=== PATIENT | male | born 1965 | race Caucasian/White ===

== ENCOUNTER 2016-09-28 22:09 | Inpatient (IN) | payer OTHER ==
[~2016-09-28] VITALS: Ht 180.3 cm; Wt 71.2 kg
[~2016-09-28 22:09] MED LIST: ACAMPROSATE CA333 MG PO; ADVIL200 MG PO; AMITRIPTYLINE H25 MG PO; AMITRIPTYLINE H50 MG PO; AMOXICILLIN500 MG PO; ARTIFICIAL TEAR1510 BOTH EYES; ATIVAN0.5 MG PO; B-1100 MG PO; BENADRYL25 MG PO; BENTYL20 MG PO; BUSPAR10 MG PO; BUTALB-APAP-CA1 EACH PO; Bentyl PO; CALAN SR,COVER240 MG PO; CARAFATE100 MG/ML PO; CARBAMAZEPINE100 MG PO; CENTRUM SILVER1 EAC3 PO; CHLORDIAZEPOXID25 MG PO; CITALOPRAM HBR20 MG PO; CLEAR EYES ITCH15 ML BOTH EYES; Cipro PO; DAILY VALUE1 EACH PO; DAILY VITE1 EAC1 PO; DECADRON1 MG PO; DOXEPIN HCL50 MG PO; ELIQUIS5 MG PO; ENDOCET 5-3251 EACH PO; FENUGREEK500 MG PO; FIORICET,ESG1 TABLET PO; FLAGYL500 MG PO; FLEXERIL10 MG PO; FLEXERIL5 MG PO; FLORASTOR250 MG PO; FLUCONAZOLE100 MG PO; FOLIC ACID1 MG PO; FOLVITE1 M1 PO; Flagyl PO; Flomax PO; GUMMI BEAR MUL1 EACH PO; HEARTBURN RELI150 M1 PO; IMODIUM2 MG PO; KADIAN10 MG PO; LEVAQUIN750 MG PO; LIBRIUM10 MG PO; LIBRIUM25 MG PO; LOPRESSOR25 MG PO; Lactinex,Floranex PO; MEDROL DOSEPAK4 MG PO; METOCLOPRAMIDE H5 MG PO; METRONIDAZOLE500 MG PO; MOTRIN IB200 MG PO; MOTRIN400 MG PO; MYCOSTATIN 100,60 ML PO; NAPROSYN500 MG PO; NEXIUM40 MG PO/NG; NORCO 5/3251 TABLET PO; OMEPRAZOLE40 M1 PO; ONE DAILY FOR1 EAC2 PO; PANTOPRAZOLE SO40 MG PO; PEPCID20 MG PO; PERCOCET 5/31 TABLET PO; PRILOSEC20 MG PO; PRILOSEC40 MG PO; PROMETHAZINE HC25 M1 PO; PROPRANOLOL HCL80 MG PO; PROTONIX40 MG PO; Protonix PO; Reglan PO; SINEQUAN50 MG PO; SUCRALFATE1 GM/10 ML PO; SUMATRIPTAN SUC25 MG PO; THERAGRAN1 TABLET PO; THIAMINE HCL100 MG PO; THIAMINE,VITAM100 MG PO; TUMS500 MG PO; TYLENOL EXTRA500 MG PO; TYLENOL PM EX-1 EACH PO; TYLENOL REGULA325 MG PO; Thiamine,Vitamin B1 PO; Ultram PO; VANCOMYCIN HCL125 MG PO; VERAPAMIL HCL240 MG PO; VISINE A.C300 DROP/1 BOTH EYES; VITAMIN B-1100 MG PO; Vancocin Oral Soluti PO; WHEY PROTEIN P907 GM PO; WHEY PROTEIN PO; ZOFRAN ODT4 MG PO; ZOFRAN4 MG PO; Zantac PO
[2016-09-28 22:57] LABS: HEMATOCRIT 38.8 % (38.0-50.0); MCH 31.3 PG (29.0-34.0); MCHC 34.3 G/DL (30.0-36.0); MCV 91.3 FL (86-99); PLATELET COUNT 511 K/uL (156-360); RBC DIS.WIDTH-CV 15.3 % (11.8-14.6); RBC DIS.WIDTH-SD 49.9 % (39-53); RED BLOOD COUNT 4.25 M/uL (4.00-5.50); WHITE BLOOD COUNT 8.1 K/uL (4.1-10.2)
[2016-09-28 23:04] LABS: CHLORIDE 107 mEq/L (99-109); POTASSIUM 3.8 mEq/L (3.7-5.4); SODIUM 144 mEq/L (136-147)
[2016-09-28 23:06] LABS: GLUCOSE 100 mg/dL (70-99); INTER. NORMALIZED RATIO 1.1; PROTHROMBIN TIME 10.7 (9.2-11.2); PTT 37.6 (25-32)
[2016-09-28 23:07] LABS: ANION GAP 18 MEQ/L (2-14)
[2016-09-28 23:08] LABS: TOTAL BILIRUBIN 0.6 mg/dL (0.0-1.0)
[2016-09-28 23:09] LABS: ALKALINE PHOSPHATASE 126 IU/L (3-129)
[2016-09-28 23:10] LABS: GFR ESTIMATE (CALCULATED) > 59 mL/min/
[2016-09-28 23:11] LABS: UREA NITROGEN (BUN) 5 mg/dL (9-23)
[2016-09-28 23:13] LABS: LIPASE 37 U/L (1.0-51.0)
[2016-09-28 23:16] LABS: TROP-I INTERPRETATION NEGATIVE; TROPONIN-I < 0.01 ng/mL (0.0-0.30)
[2016-09-29] MEDS ORDERED: ADVIL,NUPRIN,M200 MG PO (00:56)
[2016-09-29 02:15] LABS: ADD MIUA? NO; BILIRUBIN NEGATIVE; BLOOD NEGATIVE; COLOR YELLOW ((YELLOW)); GLUCOSE (STRIP) NEGATIVE; KETONES NEGATIVE; LEUKOCYTES NEGATIVE; NITRITE NEGATIVE; PROTEIN (STRIP) NEGATIVE; SPECIFIC GRAVITY 1.029 (1.000-1.030); UCUL ADDED? NO; UROBILINOGEN 0.2 MG/DL (0.2-1.0)
[2016-09-29 02:57] LABS: MAGNESIUM 2.3 mg/dL (1.3-2.7)
[2016-09-29 06:00] VITALS: BP 148/96
[2016-09-29 08:15] VITALS: BP 145/88
[2016-09-29 11:43] VITALS: BP 137/73
[2016-09-29 16:45] VITALS: BP 141/82
[2016-09-29 20:00] VITALS: BP 139/88
[2016-09-30] VITALS: BP 147/88
[2016-09-30 04:00] VITALS: BP 145/91
[2016-09-30 07:19] LABS: HEMATOCRIT 33.7 % (38.0-50.0); MCH 30.8 PG (29.0-34.0); MCHC 33.5 G/DL (30.0-36.0); MCV 91.8 FL (86-99); RBC DIS.WIDTH-CV 15.4 % (11.8-14.6); RBC DIS.WIDTH-SD 51.7 % (39-53); RED BLOOD COUNT 3.67 M/uL (4.00-5.50); WHITE BLOOD COUNT 6.9 K/uL (4.1-10.2)
[2016-09-30 07:51] LABS: HEMATOLOGY COMMENT 1 REV
[2016-09-30 07:54] LABS: MEAN PLAT.VOLUME 9.4 uM^3 (9.0-12.4); PLATELET COUNT 288 K/uL (156-360)
[2016-09-30 08:11] LABS: ANION GAP 12 MEQ/L (2-14); CHLORIDE 103 MEQ/L (99-109); GFR ESTIMATE (CALCULATED) > 59 mL/min/; GLUCOSE 90 mg/dL (70-99); POTASSIUM 3.5 MEQ/L (3.7-5.4); SAMPLE HEMOLYSIS CHECK 0; SAMPLE ICTERIC CHECK 0; SAMPLE LIPEMIA CHECK 0; SODIUM 138 MEQ/L (136-147); UREA NITROGEN (BUN) 2 mg/dL (9-23)
[2016-09-30 08:26] VITALS: BP 146/87
[2016-09-30 12:18] VITALS: BP 142/86
[2016-09-30 14:22] LABS: INTER. NORMALIZED RATIO 1.1; PROTHROMBIN TIME 11.3 (9.2-11.2)
[2016-09-30 16:27] VITALS: BP 129/83
[2016-09-30 20:00] VITALS: BP 135/81
[2016-10-01] VITALS (7 sets, daily range): BP systolic 122–152; BP diastolic 78–96
[2016-10-01 09:58] LABS: INTER. NORMALIZED RATIO 1.1; PROTHROMBIN TIME 11.1 (9.2-11.2)
[2016-10-02 04:14] VITALS: BP 121/80
[2016-10-02 08:04] VITALS: BP 124/88
[2016-10-02 10:04] LABS: MCHC 33.2 G/DL (30.0-36.0); MCV 93.6 FL (86-99); MEAN PLAT.VOLUME 9.7 uM^3 (9.0-12.4); PLATELET COUNT 235 K/uL (156-360); RBC DIS.WIDTH-CV 15.8 % (11.8-14.6); RBC DIS.WIDTH-SD 53.4 % (39-53); RED BLOOD COUNT 4.06 M/uL (4.00-5.50)
[2016-10-02 10:28] LABS: PROTHROMBIN TIME 10.6 (9.2-11.2)
[2016-10-02 10:29] LABS: ANION GAP 9 MEQ/L (2-14); CHLORIDE 103 MEQ/L (99-109); GFR ESTIMATE (CALCULATED) > 59 mL/min/; GLUCOSE 148 mg/dL (70-99); POTASSIUM 3.6 MEQ/L (3.7-5.4); SAMPLE HEMOLYSIS CHECK 0; SAMPLE ICTERIC CHECK 0; SAMPLE LIPEMIA CHECK 0; SODIUM 139 MEQ/L (136-147); UREA NITROGEN (BUN) 3 mg/dL (9-23)
[2016-10-02 11:46] VITALS: BP 141/81
[2016-10-02 15:27] VITALS: BP 138/83
[2016-10-02 19:33] VITALS: BP 120/85
[2016-10-02 23:50] VITALS: BP 120/81
[2016-10-03 04:00] VITALS: BP 121/84
[2016-10-03 06:33] LABS: INTER. NORMALIZED RATIO 1.1; PROTHROMBIN TIME 11.4 (9.2-11.2); PTT 65.8 (25-32)
[2016-10-03 08:38] VITALS: BP 124/81
[2016-10-03 12:10] VITALS: BP 132/76
[2016-10-03 16:50] VITALS: BP 113/71
[2016-10-03 20:32] VITALS: BP 126/69
[2016-10-03 23:49] VITALS: BP 128/78
[2016-10-04 05:06] VITALS: BP 139/82
[2016-10-04 06:17] LABS: INTER. NORMALIZED RATIO 1.4; PROTHROMBIN TIME 14.6 (9.2-11.2)
[2016-10-04 07:45] VITALS: BP 133/85
[2016-10-04 14:41] VITALS: BP 125/76
[2016-10-04 16:54] LABS: HEMATOCRIT 36.5 % (38.0-50.0); MCH 30.7 PG (29.0-34.0); MCHC 32.6 G/DL (30.0-36.0); MCV 94.3 FL (86-99); MEAN PLAT.VOLUME 9.7 uM^3 (9.0-12.4); PLATELET COUNT 193 K/uL (156-360); RBC DIS.WIDTH-CV 16.5 % (11.8-14.6); RED BLOOD COUNT 3.87 M/uL (4.00-5.50); WHITE BLOOD COUNT 4.7 K/uL (4.1-10.2)
[2016-10-04 17:19] LABS: EOSINOPHIL (%) 1.5 % (0-5); EOSINOPHIL COUNT 0.1 K/uL (0-0.3); IMMATURE GRANULOCYTE (%) 0.2 % (0.0-0.7); MONOCYTE (%) 7.8 % (3-12); MONOCYTE COUNT 0.4 K/uL (0-0.8); NEUTROPHIL (%) 68.8 % (45-76); NEUTROPHIL COUNT 3.3 K/uL (1.8-6.4)
[2016-10-04 17:22] VITALS: BP 127/83
[2016-10-04 20:05] VITALS: BP 118/71
[2016-10-04 23:46] VITALS: BP 120/72
[2016-10-05 06:37] LABS: HEMATOCRIT 36.2 % (38.0-50.0); MCH 30.6 PG (29.0-34.0); MCHC 32.6 G/DL (30.0-36.0); MCV 93.8 FL (86-99); MEAN PLAT.VOLUME 9.8 uM^3 (9.0-12.4); PLATELET COUNT 204 K/uL (156-360); RBC DIS.WIDTH-CV 16.2 % (11.8-14.6); RBC DIS.WIDTH-SD 55.8 % (39-53); RED BLOOD COUNT 3.86 M/uL (4.00-5.50); WHITE BLOOD COUNT 4.7 K/uL (4.1-10.2)
[2016-10-05 06:46] LABS: INTER. NORMALIZED RATIO 2.2
[2016-10-05 06:53] LABS: EOSINOPHIL (%) 2.2 % (0-5); EOSINOPHIL COUNT 0.1 K/uL (0-0.3); IMMATURE GRANULOCYTE (%) 0.4 % (0.0-0.7); MONOCYTE (%) 9.5 % (3-12); MONOCYTE COUNT 0.4 K/uL (0-0.8); NEUTROPHIL (%) 66.6 % (45-76); NEUTROPHIL COUNT 3.1 K/uL (1.8-6.4)
[2016-10-05 07:19] LABS: ANION GAP 8 MEQ/L (2-14); CHLORIDE 103 MEQ/L (99-109); GFR ESTIMATE (CALCULATED) > 59 mL/min/; POTASSIUM 4.2 MEQ/L (3.7-5.4); SAMPLE HEMOLYSIS CHECK 0; SAMPLE ICTERIC CHECK 0; SAMPLE LIPEMIA CHECK 0; SODIUM 137 MEQ/L (136-147); UREA NITROGEN (BUN) 5 mg/dL (9-23)
[2016-10-05 07:22] LABS: GLUCOSE 96 mg/dL (70-99)
[2016-10-05 08:02] VITALS: BP 125/75
[2016-10-05 12:00] VITALS: BP 112/67
[2016-10-05] MEDS ORDERED: COUMADIN3 MG PO (14:57)
[2016-10-05] MEDS ORDERED: PERCOCET 10/1 TABLET PO (15:09)
[2016-10-05 15:23] VITALS: BP 118/70
== END 2016-10-05 19:04 | disposition home or self-care (01) | DRG 314 ==
LOC: EME → EDBD 22:09 → EME 22:09 → EDOF 09-29 01:41 → 5SOUTH 09-29 01:41
PROVIDERS: Emergency Medicine; Hospitalist; Internal Medicine; Nurse Practitioner Adult Health; Nurse Practitioner Family
DX: T82.868A Thrombosis due to vascular prosthetic devices, implants and grafts, initial encounter (principal); I82.220 Acute embolism and thrombosis of inferior vena cava; I82.423 Acute embolism and thrombosis of iliac vein, bilateral; K52.9 Noninfective gastroenteritis and colitis, unspecified; E86.0 Dehydration; T82.7XXA Infection and inflammatory reaction due to other cardiac and vascular devices, implants and grafts, initial encounter; R78.81 Bacteremia; B95.5 Unspecified streptococcus as the cause of diseases classified elsewhere; I25.10 Atherosclerotic heart disease of native coronary artery without angina pectoris; F32.9 Major depressive disorder, single episode, unspecified; G43.519 Persistent migraine aura without cerebral infarction, intractable, without status migrainosus; K21.9 Gastro-esophageal reflux disease without esophagitis; F10.20 Alcohol dependence, uncomplicated; F17.210 Nicotine dependence, cigarettes, uncomplicated; Z95.5 Presence of coronary angioplasty implant and graft; Z85.820 Personal history of malignant melanoma of skin; Z86.711 Personal history of pulmonary embolism; Z86.718 Personal history of other venous thrombosis and embolism; Z79.01 Long term (current) use of anticoagulants; Z91.128 Patient's intentional underdosing of medication regimen for other reason; I25.2 Old myocardial infarction
CPT/HCPCS: 70450; 74177; 76937; 80048; 80053; 81003; 83605; 83690; 83735; 84484; 85025; 85027; 85610; 85730; 87040; 87077; 87493; 87801; 93005; 99281; 99285; C1894; C9113; J0744; J1200; J1650; J2060; J2270; J2405; J2540; J2765; J3411; J7030; J7050; S0028; S0030

== ENCOUNTER 2016-10-14 08:39 | Observation (INO) | payer OTHER ==
[~2016-10-14] VITALS: Ht 180.3 cm; Wt 70.0 kg
[~2016-10-14 08:39] MED LIST changes: +ADVIL,NUPRIN,M200 MG PO; +COUMADIN3 MG PO; +PERCOCET 10/1 TABLET PO
[2016-10-14 08:47] VITALS: BP 142/74
[2016-10-14 10:00] VITALS: BP 135/82
[2016-10-14 11:27] LABS: HEMATOCRIT 33.9 % (38.0-50.0); MCH 30.9 PG (29.0-34.0); MCHC 34.2 G/DL (30.0-36.0); MCV 90.4 FL (86-99); RBC DIS.WIDTH-CV 16.3 % (11.8-14.6); RBC DIS.WIDTH-SD 52.4 % (39-53); RED BLOOD COUNT 3.75 M/uL (4.00-5.50); WHITE BLOOD COUNT 4.9 K/uL (4.1-10.2)
[2016-10-14 11:30] LABS: EOSINOPHIL (%) 0 % (0-5); IMMATURE GRANULOCYTE (%) 0.2 % (0.0-0.7); IMMATURE GRANULOCYTE COUNT 0.1 K/uL; LYMPHOCYTE COUNT 0.7 K/uL (1.0-2.8); MONOCYTE (%) 3.3 % (3-12); MONOCYTE COUNT 0.2 K/uL (0-0.8); NEUTROPHIL (%) 82.5 % (45-76); PLATELET COUNT 403 K/uL (156-360)
[2016-10-14 11:36] LABS: CHLORIDE 103 mEq/L (99-109); POTASSIUM 3.8 mEq/L (3.7-5.4); SODIUM 138 mEq/L (136-147)
[2016-10-14 11:37] LABS: INTER. NORMALIZED RATIO 2.1; PROTHROMBIN TIME 21.4 (9.2-11.2)
[2016-10-14 11:38] LABS: GLUCOSE 99 mg/dL (70-99)
[2016-10-14 11:40] LABS: ANION GAP 14 MEQ/L (2-14); TOTAL BILIRUBIN 0.5 mg/dL (0.0-1.0)
[2016-10-14 11:42] LABS: ALKALINE PHOSPHATASE 65 IU/L (3-129); GFR ESTIMATE (CALCULATED) > 59 mL/min/
[2016-10-14 11:43] LABS: UREA NITROGEN (BUN) 7 mg/dL (9-23)
[2016-10-14 11:45] LABS: LIPASE 13 U/L (1.0-51.0)
[2016-10-14 11:48] LABS: TROP-I INTERPRETATION NEGATIVE; TROPONIN-I < 0.01 ng/mL (0.0-0.30)
[2016-10-14] MEDS ORDERED: CITALOPRAM HBR20 MG PO (12:35)
[2016-10-14] MEDS ORDERED: WARFARIN SODIUM3 MG PO (12:36)
[2016-10-14] MEDS ORDERED: [UNRECOGNIZED DRUG - CODE] IV (12:40)
[2016-10-14 16:58] LABS: HEMATOCRIT 32.5 % (38.0-50.0); MCV 90.3 FL (86-99)
[2016-10-14 18:02] VITALS: BP 138/82
[2016-10-15] VITALS: BP 134/75
[2016-10-15 01:23] LABS: MCV 90.7 FL (86-99)
[2016-10-15 07:12] LABS: HEMATOCRIT 36.7 % (38.0-50.0); MCV 90.8 FL (86-99)
[2016-10-15 07:26] LABS: INTER. NORMALIZED RATIO 1.7; PROTHROMBIN TIME 17.1 (9.2-11.2)
[2016-10-15 07:38] VITALS: BP 133/72
[2016-10-15 16:07] LABS: HEMATOCRIT 36.4 % (38.0-50.0)
[2016-10-15 16:31] VITALS: BP 127/74
[2016-10-16 00:11] VITALS: BP 121/70
[2016-10-16 00:44] LABS: HEMATOCRIT 38.6 % (38.0-50.0); MCV 90.4 FL (86-99)
[2016-10-16 07:01] VITALS: BP 115/66
[2016-10-16 07:10] LABS: INTER. NORMALIZED RATIO 1.3; PROTHROMBIN TIME 13.7 (9.2-11.2)
[2016-10-16 07:27] LABS: MCV 92.2 FL (86-99)
[2016-10-16] MEDS ORDERED: FOLIC ACID1 MG PO (10:28)
[2016-10-16] MEDS ORDERED: Thiamine,Vitamin B1 PO (10:28)
[2016-10-16] MEDS ORDERED: THERAGRAN1 TABLET PO (10:28)
[2016-10-16] MEDS ORDERED: LOVENOX80 MG/0.8 SC (11:10)
[2016-10-16 11:47] VITALS: BP 117/81
== END 2016-10-16 14:32 | disposition home or self-care (01) ==
LOC: EME → EDBD 08:39 → EME 08:39 → 5SOUTH 12:28 → EDOF 12:28 → 5SOUTH 12:28
PROVIDERS: Emergency Medicine; Hospitalist
DX: K92.2 Gastrointestinal hemorrhage, unspecified (principal); F10.20 Alcohol dependence, uncomplicated; I82.221 Chronic embolism and thrombosis of inferior vena cava; Z86.718 Personal history of other venous thrombosis and embolism; Z95.828 Presence of other vascular implants and grafts; Z79.01 Long term (current) use of anticoagulants; R78.81 Bacteremia; K20.9 Esophagitis, unspecified; Z85.820 Personal history of malignant melanoma of skin; R51 Headache; Z82.3 Family history of stroke; Z72.0 Tobacco use; Z88.5 Allergy status to narcotic agent; Z88.6 Allergy status to analgesic agent; Z88.8 Allergy status to other drugs, medicaments and biological substances
CPT/HCPCS: 36415; 71010; 80053; 83605; 83690; 83735; 84484; 85014; 85018; 85025; 85610; 86850; 86900; 86901; 87040; 93005; 99281; 99285; C9113; G0378; J1650; J2060; J2270; J2405; J2540; J2765; J3411; J7030; J7050

== ENCOUNTER 2016-10-29 12:27 | Emergency (ER) | payer OTHER ==
[~2016-10-29] VITALS: Ht 180.3 cm; Wt 64.7 kg
[~2016-10-29 12:27] MED LIST changes: +LOVENOX80 MG/0.8 SC; +WARFARIN SODIUM3 MG PO; +[UNRECOGNIZED DRUG - CODE] IV
[2016-10-29 13:53] LABS: BASOPHIL COUNT 0.1 K/uL (0-0.1); EOSINOPHIL (%) 0.3 % (0-5); HEMATOCRIT 42.5 % (38.0-50.0); IMMATURE GRANULOCYTE (%) 0.1 % (0.0-0.7); IMMATURE GRANULOCYTE COUNT 0.1 K/uL; LYMPHOCYTE COUNT 1.3 K/uL (1.0-2.8); MCHC 34.6 G/DL (30.0-36.0); MCV 86.7 FL (86-99); MEAN PLAT.VOLUME 9.2 uM^3 (9.0-12.4); MONOCYTE (%) 2.7 % (3-12); MONOCYTE COUNT 0.3 K/uL (0-0.8); NEUTROPHIL (%) 82.3 % (45-76); NEUTROPHIL COUNT 7.7 K/uL (1.8-6.4); RBC DIS.WIDTH-CV 16.4 % (11.8-14.6); RBC DIS.WIDTH-SD 52.3 % (39-53); WHITE BLOOD COUNT 9.4 K/uL (4.1-10.2)
[2016-10-29 13:54] LABS: PLATELET COUNT 266 K/uL (156-360)
[2016-10-29 13:56] LABS: CHLORIDE 105 mEq/L (99-109); POTASSIUM 4.4 mEq/L (3.7-5.4); SODIUM 143 mEq/L (136-147)
[2016-10-29 13:58] LABS: GLUCOSE 87 mg/dL (70-99)
[2016-10-29 13:59] LABS: ANION GAP 23 MEQ/L (2-14)
[2016-10-29 14:00] LABS: TOTAL BILIRUBIN 0.8 mg/dL (0.0-1.0)
[2016-10-29 14:01] LABS: SERUM ETHYL ALCOHOL 309 mg/dL
[2016-10-29 14:02] LABS: ALKALINE PHOSPHATASE 80 IU/L (3-129); GFR ESTIMATE (CALCULATED) > 59 mL/min/
[2016-10-29 14:06] LABS: D-DIMER ELISA > 4.00 mg/L FEU (< 0.57)
[2016-10-29 14:07] LABS: TROP-I INTERPRETATION NEGATIVE; TROPONIN-I < 0.01 ng/mL (0.0-0.30)
[2016-10-29 14:10] LABS: CK-MB 0.5 ng/mL (0.0-4.9)
[2016-10-29 14:24] LABS: UREA NITROGEN (BUN) 11 mg/dL (9-23)
[2016-10-29 14:26] LABS: CREATINE KINASE 59 IU/L (1-294); TOTAL CK 59 IU/L (1-294)
[2016-10-29 17:23] LABS: INTER. NORMALIZED RATIO 1.2; PROTHROMBIN TIME 11.9 (9.2-11.2)
[2016-10-29 23:31] LABS: TROP-I INTERPRETATION NEGATIVE; TROPONIN-I < 0.01 ng/mL (0.0-0.30)
[2016-10-29] MEDS ORDERED: ATIVAN1 MG PO (23:47)
[2016-10-29] MEDS ORDERED: DESYREL100 MG PO (23:47)
[2016-10-30 00:12] VITALS: BP 143/92
== END 2016-10-30 00:16 | disposition home or self-care (01) ==
LOC: EME 12:27
PROVIDERS: Emergency Medicine
DX: R07.9 Chest pain, unspecified (principal); R10.9 Unspecified abdominal pain; F10.239 Alcohol dependence with withdrawal, unspecified; I10 Essential (primary) hypertension; I25.2 Old myocardial infarction; Z98.61 Coronary angioplasty status; Z79.01 Long term (current) use of anticoagulants; F17.200 Nicotine dependence, unspecified, uncomplicated
CPT/HCPCS: 71010; 74176; 78582; 80053; 82550; 82553; 84484; 85025; 85379; 85610; 93005; 99281; 99285; A9540; A9567; C9113; G0480; J2060; J2270; J2405; J2765; J7030

== ENCOUNTER 2016-11-23 16:53 | Inpatient (IN) | payer OTHER ==
[~2016-11-23] VITALS: Ht 180.3 cm; Wt 72.2 kg
[~2016-11-23 16:53] MED LIST changes: +ATIVAN1 MG PO; +DESYREL100 MG PO
[2016-11-23 17:47] LABS: HEMATOCRIT 43.6 % (38.0-50.0); MCH 29.9 PG (29.0-34.0); MCHC 34.4 G/DL (30.0-36.0); MCV 86.9 FL (86-99); MEAN PLAT.VOLUME 9.1 uM^3 (9.0-12.4); PLATELET COUNT 258 K/uL (156-360); RBC DIS.WIDTH-CV 17.9 % (11.8-14.6); RBC DIS.WIDTH-SD 56.8 % (39-53); RED BLOOD COUNT 5.02 M/uL (4.00-5.50); WHITE BLOOD COUNT 3.1 K/uL (4.1-10.2)
[2016-11-23 17:58] LABS: CHLORIDE 103 mEq/L (99-109); POTASSIUM 4.1 mEq/L (3.7-5.4); SODIUM 146 mEq/L (136-147)
[2016-11-23 18:00] LABS: GLUCOSE 102 mg/dL (70-99)
[2016-11-23 18:01] LABS: ANION GAP 18 MEQ/L (2-14)
[2016-11-23 18:03] LABS: GFR ESTIMATE (CALCULATED) > 59 mL/min/; SERUM ETHYL ALCOHOL 318 mg/dL
[2016-11-23 18:04] LABS: UREA NITROGEN (BUN) 9 mg/dL (9-23)
[2016-11-23 18:07] LABS: TROP-I INTERPRETATION NEGATIVE; TROPONIN-I < 0.01 ng/mL (0.0-0.30)
[2016-11-23 23:23] LABS: AMPHETAMINE NEGATIVE (500 ng/mL); BARBITURATES NEGATIVE (200 ng/mL); BENZODIAZEPINES NEGATIVE (150 ng/mL); COCAINE NEGATIVE (150 ng/mL); INTERNAL CONTROLS VALID? YES; METHADONE NEGATIVE (200 ng/mL); METHAMPHETAMINE NEGATIVE (500 ng/mL); OPIATES (MORPHINE) NEGATIVE (100 ng/mL); OXYCODONE NEGATIVE (100 ng/mL); PHENCYCLIDINE NEGATIVE (25 ng/mL); PROPOXYPHENE NEGATIVE (300 ng/mL); THC CANNABINOIDS NEGATIVE (50 ng/mL); TRICYCLIC ANTIDEPRESSANTS NEGATIVE (300 ng/mL)
[2016-11-24] MEDS ORDERED: COUMADIN1 MG PO (13:07)
[2016-11-24] MEDS ORDERED: PROTONIX40 MG PO (13:10)
[2016-11-24 18:52] VITALS: BP 168/106
[2016-11-24 19:00] VITALS: BP 168/106
[2016-11-24 21:44] LABS: INTER. NORMALIZED RATIO 1.1
[2016-11-25 09:07] LABS: INTER. NORMALIZED RATIO 1.1; PROTHROMBIN TIME 10.8 (9.2-11.2)
[2016-11-25 09:29] VITALS: BP 132/87
[2016-11-25 15:16] VITALS: BP 127/83
[2016-11-26 07:39] VITALS: BP 117/73
[2016-11-26 09:42] LABS: INTER. NORMALIZED RATIO 1.1; PROTHROMBIN TIME 10.8 (9.2-11.2)
[2016-11-26 15:30] VITALS: BP 103/60
[2016-11-27 08:12] VITALS: BP 112/79
[2016-11-27 08:18] LABS: INTER. NORMALIZED RATIO 1.1; PROTHROMBIN TIME 10.7 (9.2-11.2)
[2016-11-27 15:07] VITALS: BP 142/79
[2016-11-27 19:00] VITALS: BP 134/70
[2016-11-28 07:16] LABS: INTER. NORMALIZED RATIO 1.1; PROTHROMBIN TIME 11.4 (9.2-11.2)
[2016-11-28 07:42] VITALS: BP 132/90
[2016-11-28 15:48] VITALS: BP 128/71
[2016-11-29 07:36] LABS: INTER. NORMALIZED RATIO 1.2; PROTHROMBIN TIME 12.4 (9.2-11.2)
[2016-11-29 08:08] VITALS: BP 146/77
[2016-11-29 15:10] VITALS: BP 109/67
[2016-11-30 07:45] VITALS: BP 137/81
[2016-11-30 09:15] LABS: INTER. NORMALIZED RATIO 1.4; PROTHROMBIN TIME 14.2 (9.2-11.2)
[2016-11-30 15:18] VITALS: BP 114/64
[2016-12-01 07:58] VITALS: BP 120/71
[2016-12-01 08:01] LABS: INTER. NORMALIZED RATIO 1.5; PROTHROMBIN TIME 15.4 (9.2-11.2)
[2016-12-01 08:34] LABS: HEMATOCRIT 36.2 % (38.0-50.0); MCH 30.2 PG (29.0-34.0); MCHC 33.7 G/DL (30.0-36.0); MCV 89.6 FL (86-99); PLATELET COUNT 213 K/uL (156-360); RBC DIS.WIDTH-CV 18.3 % (11.8-14.6); RBC DIS.WIDTH-SD 59.9 % (39-53); RED BLOOD COUNT 4.04 M/uL (4.00-5.50)
[2016-12-01 08:35] LABS: WHITE BLOOD COUNT 4.2 K/uL (4.1-10.2)
[2016-12-01 15:55] VITALS: BP 116/73
[2016-12-02 07:13] LABS: INTER. NORMALIZED RATIO 1.6; PROTHROMBIN TIME 16.2 (9.2-11.2)
[2016-12-02 08:00] VITALS: BP 123/78
[2016-12-02 15:58] VITALS: BP 112/57
[2016-12-03 07:55] VITALS: BP 117/68
[2016-12-03] MEDS ORDERED: CITALOPRAM HBR20 MG PO (09:16)
[2016-12-03] MEDS ORDERED: BUPROPION XL300 MG PO (09:16)
[2016-12-03 10:39] LABS: INTER. NORMALIZED RATIO 1.9
== END 2016-12-03 12:52 | disposition home or self-care (01) | DRG 885 ==
LOC: EME 16:53 → 1WEST 11-24 12:29 → EDOF 11-24 12:29 → 1WEST 11-24 12:29
PROVIDERS: Psychiatry & Neurology Psychiatry
DX: F33.2 Major depressive disorder, recurrent severe without psychotic features (principal); R45.851 Suicidal ideations; F10.229 Alcohol dependence with intoxication, unspecified; Y90.8 Blood alcohol level of 240 mg/100 ml or more; G47.9 Sleep disorder, unspecified; F41.9 Anxiety disorder, unspecified; I25.10 Atherosclerotic heart disease of native coronary artery without angina pectoris; K21.9 Gastro-esophageal reflux disease without esophagitis; R79.1 Abnormal coagulation profile; G43.909 Migraine, unspecified, not intractable, without status migrainosus; I25.2 Old myocardial infarction; Z98.61 Coronary angioplasty status; Z56.0 Unemployment, unspecified; Z87.891 Personal history of nicotine dependence; Z88.6 Allergy status to analgesic agent; Z81.8 Family history of other mental and behavioral disorders; Z79.01 Long term (current) use of anticoagulants; T45.515A Adverse effect of anticoagulants, initial encounter
CPT/HCPCS: 71020; 80048; 84484; 85027; 85610; 90839; 93005; 97150 GO; 97166 GO; 99281; 99285; G0480; J1650; Q0177

== ENCOUNTER 2017-05-03 20:48 | Inpatient (IN) | payer OTHER ==
[~2017-05-03] VITALS: Ht 180.3 cm; Wt 74.9 kg
[~2017-05-03 20:48] MED LIST changes: +BUPROPION XL300 MG PO; +COUMADIN1 MG PO
[2017-05-03 21:34] LABS: HEMATOCRIT 40.4 % (38.0-50.0); MCHC 34.7 G/DL (30.0-36.0); MEAN PLAT.VOLUME 9.8 uM^3 (9.0-12.4); PLATELET COUNT 207 K/uL (156-360); RBC DIS.WIDTH-CV 13.4 % (11.8-14.6); RBC DIS.WIDTH-SD 37.6 % (39-53); RED BLOOD COUNT 5.18 M/uL (4.00-5.50); WHITE BLOOD COUNT 5.1 K/uL (4.1-10.2)
[2017-05-03 21:44] LABS: CHLORIDE 94 mEq/L (99-109); POTASSIUM 3.3 mEq/L (3.7-5.4); SODIUM 139 mEq/L (136-147)
[2017-05-03 21:46] LABS: GLUCOSE 147 mg/dL (70-99)
[2017-05-03 21:47] LABS: ANION GAP 22 MEQ/L (2-14)
[2017-05-03 21:49] LABS: ALKALINE PHOSPHATASE 99 IU/L (3-129); SERUM ETHYL ALCOHOL 243 mg/dL
[2017-05-03 21:50] LABS: GFR ESTIMATE (CALCULATED) > 59 mL/min/
[2017-05-03 21:51] LABS: UREA NITROGEN (BUN) 12 mg/dL (9-23)
[2017-05-03 21:53] LABS: LIPASE 89 U/L (1.0-51.0)
[2017-05-03 21:56] LABS: TROP-I INTERPRETATION NEGATIVE; TROPONIN-I < 0.01 ng/mL (0.0-0.30)
[2017-05-04 03:42] LABS: ADD MIUA? NO; BILIRUBIN NEGATIVE; BLOOD NEGATIVE; COLOR YELLOW ((YELLOW)); GLUCOSE (STRIP) 50; KETONES 5; LEUKOCYTES NEGATIVE; NITRITE NEGATIVE; PROTEIN (STRIP) 30; SPECIFIC GRAVITY 1.016 (1.000-1.030); UCUL ADDED? NO; UROBILINOGEN 0.2 MG/DL (0.2-1.0)
[2017-05-04 03:50] LABS: AMPHETAMINE NEGATIVE (500 ng/mL); BARBITURATES NEGATIVE (200 ng/mL); BENZODIAZEPINES PRESUMPTIVE POSITIVE (150 ng/mL); COCAINE NEGATIVE (150 ng/mL); INTERNAL CONTROLS VALID? YES; METHADONE NEGATIVE (200 ng/mL); METHAMPHETAMINE NEGATIVE (500 ng/mL); OPIATES (MORPHINE) NEGATIVE (100 ng/mL); OXYCODONE NEGATIVE (100 ng/mL); PHENCYCLIDINE NEGATIVE (25 ng/mL); PROPOXYPHENE NEGATIVE (300 ng/mL); THC CANNABINOIDS NEGATIVE (50 ng/mL); TRICYCLIC ANTIDEPRESSANTS NEGATIVE (300 ng/mL)
[2017-05-04 03:51] LABS: ADD MEDTOX COMMENT Y
[2017-05-04 04:16] LABS: TROP-I INTERPRETATION NEGATIVE; TROPONIN-I < 0.01 ng/mL (0.0-0.30)
[2017-05-04 04:39] LABS: BENZODIAZEPINES QUANT VALUE 0 NG/ML; BENZODIAZEPINES, URINE SCREEN Negative (200 ng/mL)
[2017-05-04] MEDS ORDERED: ELIQUIS5 MG PD (06:26)
[2017-05-04 07:43] VITALS: BP 134/68
[2017-05-04 09:50] VITALS: BP 132/69
[2017-05-04 11:43] VITALS: BP 119/73
[2017-05-04 15:24] VITALS: BP 127/76
[2017-05-05 07:50] VITALS: BP 129/87
[2017-05-05 15:50] VITALS: BP 125/80
[2017-05-06 07:38] VITALS: BP 139/91
[2017-05-06] MEDS ORDERED: PROTONIX40 MG PO (10:50)
[2017-05-06] MEDS ORDERED: BUPROPION XL150 MG PO (10:50)
[2017-05-06] MEDS ORDERED: ELIQUIS5 MG PD ×2 (10:50→11:04)
[2017-05-06] MEDS ORDERED: ELIQUIS5 MG PO (11:08)
[2017-05-06 15:39] VITALS: BP 137/74
[2017-05-07 07:42] VITALS: BP 115/74
[2017-05-07 15:34] VITALS: BP 125/70
[2017-05-08 07:45] VITALS: BP 126/80
[2017-05-08 16:01] VITALS: BP 138/85
[2017-05-09 07:42] VITALS: BP 145/82
[2017-05-09] MEDS ORDERED: ONDANSETRON ODT4 MG PO (09:11)
== END 2017-05-09 10:16 | disposition home or self-care (01) | DRG 897 ==
LOC: EME → EDBD 20:48 → EME 20:48 → 1WEST 05-04 05:29 → EDOF 05-04 05:29 → 1WEST 05-04 05:45 → EDOF 05-04 05:45 → ENRESERV 05-04 05:45 → 1WEST 05-04 06:15
PROVIDERS: Emergency Medicine
DX: F10.239 Alcohol dependence with withdrawal, unspecified (principal); F10.229 Alcohol dependence with intoxication, unspecified; F33.1 Major depressive disorder, recurrent, moderate; R45.851 Suicidal ideations; Y90.8 Blood alcohol level of 240 mg/100 ml or more; E87.6 Hypokalemia; K21.9 Gastro-esophageal reflux disease without esophagitis; F17.200 Nicotine dependence, unspecified, uncomplicated; I25.2 Old myocardial infarction; Z59.0 Homelessness; Z76.5 Malingerer [conscious simulation]; Z85.820 Personal history of malignant melanoma of skin; Z95.5 Presence of coronary angioplasty implant and graft; Z86.73 Personal history of transient ischemic attack (TIA), and cerebral infarction without residual deficits; Z79.01 Long term (current) use of anticoagulants
CPT/HCPCS: 71020; 80053; 81003; 83690; 84484; 84999; 85027; 90839; 93005; 97150 GO; 97165 GO; 99281; 99285; G0480; J2060; J2405; J2765; J3411; J3475; J7030

== ENCOUNTER 2017-05-22 00:45 | Inpatient (IN) | payer OTHER ==
[~2017-05-22] VITALS: Ht 180.3 cm; Wt 71.2 kg
[~2017-05-22 00:45] MED LIST changes: +BUPROPION XL150 MG PO; +ELIQUIS5 MG PD; +ONDANSETRON ODT4 MG PO
[2017-05-22 01:41] LABS: HEMATOCRIT 38.1 % (38.0-50.0); MCH 27.6 PG (29.0-34.0); MCHC 34.4 G/DL (30.0-36.0); MCV 80.2 FL (86-99); MEAN PLAT.VOLUME 9.2 uM^3 (9.0-12.4); PLATELET COUNT 217 K/uL (156-360); RBC DIS.WIDTH-CV 17.2 % (11.8-14.6); RBC DIS.WIDTH-SD 48.6 % (39-53); RED BLOOD COUNT 4.75 M/uL (4.00-5.50); WHITE BLOOD COUNT 10.6 K/uL (4.1-10.2)
[2017-05-22 01:47] LABS: INTER. NORMALIZED RATIO 1.2; PROTHROMBIN TIME 13.4 SEC (10.2-12.9)
[2017-05-22 01:50] LABS: CHLORIDE 95 mEq/L (99-109); POTASSIUM 3.6 mEq/L (3.7-5.4); SODIUM 138 mEq/L (136-147)
[2017-05-22 01:52] LABS: GLUCOSE 95 mg/dL (70-99)
[2017-05-22 01:53] LABS: ANION GAP 20 MEQ/L (2-14)
[2017-05-22 01:56] LABS: GFR ESTIMATE (CALCULATED) > 59 mL/min/
[2017-05-22 01:57] LABS: UREA NITROGEN (BUN) 10 mg/dL (9-23)
[2017-05-22 10:02] VITALS: BP 127/78
[2017-05-22 15:16] VITALS: BP 133/77
[2017-05-22 19:41] VITALS: BP 129/73
[2017-05-22 23:42] VITALS: BP 133/83
[2017-05-23 03:46] VITALS: BP 130/84
[2017-05-23 06:06] LABS: HEMATOCRIT 34.7 % (38.0-50.0); MCH 27.9 PG (29.0-34.0); MCHC 34.3 G/DL (30.0-36.0); MCV 81.3 FL (86-99); MEAN PLAT.VOLUME 10.1 uM^3 (9.0-12.4); PLATELET COUNT 200 K/uL (156-360); RBC DIS.WIDTH-CV 17.9 % (11.8-14.6); RBC DIS.WIDTH-SD 50.6 % (39-53); RED BLOOD COUNT 4.27 M/uL (4.00-5.50); WHITE BLOOD COUNT 7.7 K/uL (4.1-10.2)
[2017-05-23 07:01] LABS: ANION GAP 13 MEQ/L (2-14); CHLORIDE 92 MEQ/L (99-109); GFR ESTIMATE (CALCULATED) > 59 mL/min/; GLUCOSE 87 mg/dL (70-99); POTASSIUM 3.6 MEQ/L (3.7-5.4); SAMPLE HEMOLYSIS CHECK 0; SAMPLE ICTERIC CHECK 0; SAMPLE LIPEMIA CHECK 0; SODIUM 134 MEQ/L (136-147); UREA NITROGEN (BUN) 11 mg/dL (9-23)
[2017-05-23 08:09] VITALS: BP 120/76
[2017-05-23 12:00] VITALS: BP 113/77
[2017-05-23 16:00] VITALS: BP 121/78
[2017-05-23 19:32] VITALS: BP 127/77
[2017-05-23 23:41] VITALS: BP 121/71
[2017-05-24 03:33] VITALS: BP 114/68
[2017-05-24 07:59] VITALS: BP 101/64
[2017-05-24 11:00] VITALS: BP 126/83
[2017-05-24 16:00] VITALS: BP 127/82
[2017-05-24 23:32] VITALS: BP 105/71
[2017-05-25 06:14] LABS: HEMATOCRIT 32.1 % (38.0-50.0); MCH 28.6 PG (29.0-34.0); MCHC 34.3 G/DL (30.0-36.0); MCV 83.6 FL (86-99); MEAN PLAT.VOLUME 10.3 uM^3 (9.0-12.4); PLATELET COUNT 177 K/uL (156-360); RBC DIS.WIDTH-CV 18.3 % (11.8-14.6); RBC DIS.WIDTH-SD 53.9 % (39-53); RED BLOOD COUNT 3.84 M/uL (4.00-5.50); WHITE BLOOD COUNT 5.5 K/uL (4.1-10.2)
[2017-05-25 07:28] VITALS: BP 109/64
[2017-05-25 15:15] VITALS: BP 118/69
[2017-05-25 23:36] VITALS: BP 131/84
[2017-05-26 07:47] VITALS: BP 110/70
[2017-05-26] MEDS ORDERED: XARELTO1 EACH PO (08:43)
[2017-05-26] MEDS ORDERED: EFFEXOR XR37.5 MG PO (12:36)
[2017-05-26 15:59] VITALS: BP 103/70
== END 2017-05-26 16:13 | disposition home or self-care (01) | DRG 300 ==
LOC: EME → EDBD 00:45 → EME 00:45 → EDOF 08:01 → 5SOUTH 08:01 → ENRESERV 08:02 → EDOF 08:08 → ENRESERV 09:18 → 5SOUTH 09:56
PROVIDERS: Emergency Medicine; Internal Medicine
DX: I82.402 Acute embolism and thrombosis of unspecified deep veins of left lower extremity (principal); F33.9 Major depressive disorder, recurrent, unspecified; E87.6 Hypokalemia; F10.239 Alcohol dependence with withdrawal, unspecified; K29.70 Gastritis, unspecified, without bleeding; F17.200 Nicotine dependence, unspecified, uncomplicated; F41.9 Anxiety disorder, unspecified; D72.829 Elevated white blood cell count, unspecified; K21.9 Gastro-esophageal reflux disease without esophagitis; I25.2 Old myocardial infarction; Z86.73 Personal history of transient ischemic attack (TIA), and cerebral infarction without residual deficits; Z86.711 Personal history of pulmonary embolism; Z86.718 Personal history of other venous thrombosis and embolism; Z95.5 Presence of coronary angioplasty implant and graft; Z85.820 Personal history of malignant melanoma of skin; Z88.6 Allergy status to analgesic agent; Z88.8 Allergy status to other drugs, medicaments and biological substances; Z81.8 Family history of other mental and behavioral disorders
CPT/HCPCS: 80048; 85027; 85610; 85730; 93971; 99281; 99284; J1650; J2060; J2270; J2405; Q0169

== ENCOUNTER 2017-05-29 08:31 | Emergency (ER) | payer OTHER ==
[~2017-05-29] VITALS: Ht 180.3 cm; Wt 71.0 kg
[~2017-05-29 08:31] MED LIST changes: +EFFEXOR XR37.5 MG PO; +XARELTO1 EACH PO
[2017-05-29] MEDS ORDERED: ULTRAM50 MG PO (08:56)
[2017-05-29 09:10] VITALS: BP 118/78
== END 2017-05-29 09:20 | disposition home or self-care (01) ==
LOC: EME 08:31
DX: I82.5Y2 Chronic embolism and thrombosis of unspecified deep veins of left proximal lower extremity (principal); Z79.01 Long term (current) use of anticoagulants; I25.2 Old myocardial infarction; Z98.61 Coronary angioplasty status; Z86.73 Personal history of transient ischemic attack (TIA), and cerebral infarction without residual deficits; K21.9 Gastro-esophageal reflux disease without esophagitis; Z85.820 Personal history of malignant melanoma of skin; F17.200 Nicotine dependence, unspecified, uncomplicated
CPT/HCPCS: 99281; 99283

== ENCOUNTER 2017-07-07 01:30 | Emergency (ER) | payer OTHER ==
[~2017-07-07] VITALS: Ht 180.3 cm; Wt 70.5 kg
[~2017-07-07 01:30] MED LIST changes: +ULTRAM50 MG PO
[2017-07-07 01:58] LABS: EOSINOPHIL (%) 0 % (0-5); IMMATURE GRANULOCYTE (%) 0.4 % (0.0-0.7); INSTRUMENT ABS NEUTROPHIL CT 8.5 K/uL; LYMPHOCYTE COUNT 1.1 K/uL (1.0-2.8); MCH 28.5 PG (29.0-34.0); MCHC 33.7 G/DL (30.0-36.0); MCV 84.7 FL (86-99); MEAN PLAT.VOLUME 9.5 uM^3 (9.0-12.4); MONOCYTE (%) 5.2 % (3-12); MONOCYTE COUNT 0.5 K/uL (0-0.8); NEUTROPHIL (%) 83.4 % (45-76); NEUTROPHIL COUNT 8.5 K/uL (1.8-6.4); PLATELET COUNT 280 K/uL (156-360); RBC DIS.WIDTH-CV 18.1 % (11.8-14.6); RBC DIS.WIDTH-SD 55.8 % (39-53); RED BLOOD COUNT 4.84 M/uL (4.00-5.50); WHITE BLOOD COUNT 10.2 K/uL (4.1-10.2)
[2017-07-07 02:07] LABS: CHLORIDE 98 mEq/L (99-109); POTASSIUM 3.6 mEq/L (3.7-5.4); SODIUM 143 mEq/L (136-147)
[2017-07-07 02:10] LABS: GLUCOSE 98 mg/dL (70-99)
[2017-07-07 02:11] LABS: ANION GAP 21 MEQ/L (2-14)
[2017-07-07 02:13] LABS: ALKALINE PHOSPHATASE 71 IU/L (3-129); SERUM ETHYL ALCOHOL 279 mg/dL
[2017-07-07 02:14] LABS: GFR ESTIMATE (CALCULATED) > 59 mL/min/
[2017-07-07 02:15] LABS: UREA NITROGEN (BUN) 17 mg/dL (9-23)
[2017-07-07 02:17] LABS: LIPASE 27 U/L (1.0-51.0)
[2017-07-07 02:18] LABS: TROP-I INTERPRETATION NEGATIVE; TROPONIN-I < 0.01 ng/mL (0.0-0.30)
[2017-07-07 02:32] LABS: INTER. NORMALIZED RATIO 1.5; PROTHROMBIN TIME 16.7 SEC (10.2-12.9)
[2017-07-07 02:35] LABS: PTT 31.6 SEC (25-37)
[2017-07-07] MEDS ORDERED: ZANTAC150 MG PO (05:25)
[2017-07-07 05:45] LABS: ADD MIUA? NO; BILIRUBIN NEGATIVE; BLOOD NEGATIVE; COLOR YELLOW ((YELLOW)); GLUCOSE (STRIP) NEGATIVE; KETONES 20; LEUKOCYTES NEGATIVE; NITRITE NEGATIVE; PROTEIN (STRIP) NEGATIVE; SPECIFIC GRAVITY 1.012 (1.000-1.030); UCUL ADDED? NO; UROBILINOGEN 0.2 MG/DL (0.2-1.0)
[2017-07-07 06:40] VITALS: BP 127/78
== END 2017-07-07 06:41 | disposition home or self-care (01) ==
LOC: EME → EDBD 01:30 → EME 06:41
PROVIDERS: Emergency Medicine
DX: K21.0 Gastro-esophageal reflux disease with esophagitis (principal); K29.80 Duodenitis without bleeding; I82.512 Chronic embolism and thrombosis of left femoral vein; Z86.711 Personal history of pulmonary embolism; Z79.01 Long term (current) use of anticoagulants; F10.229 Alcohol dependence with intoxication, unspecified; E87.6 Hypokalemia; I25.2 Old myocardial infarction; Z95.5 Presence of coronary angioplasty implant and graft; I45.10 Unspecified right bundle-branch block; Z86.73 Personal history of transient ischemic attack (TIA), and cerebral infarction without residual deficits; Z85.820 Personal history of malignant melanoma of skin; Z96.89 Presence of other specified functional implants; F17.200 Nicotine dependence, unspecified, uncomplicated
CPT/HCPCS: 71020; 71275; 74177; 80053; 81003; 83690; 83735; 84484; 85025; 85610; 85730; 93005; 99281; 99285; G0480; J2405; J7030

== ENCOUNTER 2017-07-10 04:21 | Inpatient (IN) | payer OTHER ==
[~2017-07-10] VITALS: Ht 180.3 cm; Wt 70.0 kg
[~2017-07-10 04:21] MED LIST changes: +ZANTAC150 MG PO
[2017-07-10 05:21] LABS: TROP-I INTERPRETATION NEGATIVE; TROPONIN-I < 0.01 ng/mL (0.0-0.30)
[2017-07-10 05:37] LABS: CHLORIDE 98 mEq/L (99-109); POTASSIUM 3.7 mEq/L (3.7-5.4); SODIUM 143 mEq/L (136-147)
[2017-07-10 05:39] LABS: GLUCOSE 104 mg/dL (70-99)
[2017-07-10 05:40] LABS: ANION GAP 21 MEQ/L (2-14)
[2017-07-10 05:42] LABS: ALKALINE PHOSPHATASE 72 IU/L (3-129); GFR ESTIMATE (CALCULATED) > 59 mL/min/
[2017-07-10 05:44] LABS: UREA NITROGEN (BUN) 11 mg/dL (9-23)
[2017-07-10 05:47] LABS: TOTAL BILIRUBIN 1.4 mg/dL (0.0-1.0)
[2017-07-10 06:42] LABS: BASOPHIL COUNT 0.1 K/uL (0-0.1); EOSINOPHIL (%) 0.2 % (0-5); HEMATOCRIT 41.8 % (38.0-50.0); IMMATURE GRANULOCYTE (%) 0.3 % (0.0-0.7); INSTRUMENT ABS NEUTROPHIL CT 4.5 K/uL; MCH 29.3 PG (29.0-34.0); MCV 86.4 FL (86-99); MONOCYTE (%) 5.6 % (3-12); MONOCYTE COUNT 0.3 K/uL (0-0.8); NEUTROPHIL (%) 75.5 % (45-76); NEUTROPHIL COUNT 4.5 K/uL (1.8-6.4); PLATELET COUNT 263 K/uL (156-360); RBC DIS.WIDTH-CV 17.6 % (11.8-14.6); RBC DIS.WIDTH-SD 55.6 % (39-53); RED BLOOD COUNT 4.84 M/uL (4.00-5.50); WHITE BLOOD COUNT 5.9 K/uL (4.1-10.2)
[2017-07-10 09:50] LABS: TROP-I INTERPRETATION NEGATIVE; TROPONIN-I < 0.01 ng/mL (0.0-0.30)
[2017-07-10 10:01] VITALS: BP 131/84
[2017-07-10 11:53] VITALS: BP 123/74
[2017-07-10] MEDS ORDERED: ELIQUIS5 MG PO (12:42)
[2017-07-10] MEDS ORDERED: PANTOPRAZOLE SO40 MG PO (12:43)
[2017-07-10 15:32] VITALS: BP 124/76
[2017-07-10 16:06] LABS: TROP-I INTERPRETATION NEGATIVE; TROPONIN-I < 0.01 ng/mL (0.0-0.30)
[2017-07-10 21:00] VITALS: BP 134/67
[2017-07-10 23:55] VITALS: BP 146/78
[2017-07-11] VITALS (7 sets, daily range): BP systolic 125–142; BP diastolic 63–92
[2017-07-11 06:08] LABS: ANION GAP 10 MEQ/L (2-14); CHLORIDE 101 MEQ/L (99-109); POTASSIUM 4.2 MEQ/L (3.7-5.4); SAMPLE HEMOLYSIS CHECK 0; SAMPLE ICTERIC CHECK 1; SAMPLE LIPEMIA CHECK 0; SODIUM 138 MEQ/L (136-147); TOTAL BILIRUBIN 3.1 MG/DL (0.0-1.0)
[2017-07-11 06:14] LABS: ALKALINE PHOSPHATASE 62 IU/L (3-129); GFR ESTIMATE (CALCULATED) > 59 mL/min/; GLUCOSE 98 mg/dL (70-99); UREA NITROGEN (BUN) 12 mg/dL (9-23)
[2017-07-12 03:35] VITALS: BP 130/84
[2017-07-12 06:01] LABS: HEMATOCRIT 36.9 % (38.0-50.0); MCHC 33.9 G/DL (30.0-36.0); MCV 88.5 FL (86-99); RBC DIS.WIDTH-CV 16.7 % (11.8-14.6); RBC DIS.WIDTH-SD 54.5 % (39-53); RED BLOOD COUNT 4.17 M/uL (4.00-5.50); WHITE BLOOD COUNT 4.5 K/uL (4.1-10.2)
[2017-07-12 06:09] LABS: ALKALINE PHOSPHATASE 59 IU/L (3-129); ANION GAP 8 MEQ/L (2-14); CHLORIDE 105 MEQ/L (99-109); DIRECT BILIRUBIN 0.4 mg/dL (0.0-0.3); GFR ESTIMATE (CALCULATED) > 59 mL/min/; GLUCOSE 127 mg/dL (70-99); LIPASE 16 U/L (1.0-51.0); POTASSIUM 3.5 MEQ/L (3.7-5.4); SAMPLE HEMOLYSIS CHECK 0; SAMPLE ICTERIC CHECK 0; SAMPLE LIPEMIA CHECK 0; SODIUM 139 MEQ/L (136-147); TOTAL BILIRUBIN 1.9 MG/DL (0.0-1.0); UREA NITROGEN (BUN) 6 mg/dL (9-23)
[2017-07-12 06:34] LABS: MEAN PLAT.VOLUME 10.6 uM^3 (9.0-12.4); PLAT.SUFFICIENCY ADEQUATE
[2017-07-12 06:45] LABS: PLATELET COUNT 176 K/uL (156-360)
[2017-07-12 10:40] VITALS: BP 132/76
[2017-07-12 15:35] VITALS: BP 124/72
[2017-07-12] MEDS ORDERED: DIFLUCAN200 MG PO (16:01)
== END 2017-07-12 19:35 | disposition home or self-care (01) | DRG 392 ==
LOC: EME → EDBD 04:21 → EME 04:21 → EDOF 07:56 → ENRESERV 07:58 → EDOF 07:58 → ENRESERV 08:22 → 5WEST 09:44 → ENRESERV 14:59 → CANRESERV 22:58 → 5WEST 07-12 19:35
PROVIDERS: Family Medicine
PROC: 0DJ08ZZ Inspection of Upper Intestinal Tract, Via Natural or Artificial Opening Endoscopic (ICD-10-PCS; principal; 2017-07-12)
DX: K29.80 Duodenitis without bleeding (principal); F10.239 Alcohol dependence with withdrawal, unspecified; K22.10 Ulcer of esophagus without bleeding; K21.9 Gastro-esophageal reflux disease without esophagitis; I25.10 Atherosclerotic heart disease of native coronary artery without angina pectoris; F32.9 Major depressive disorder, single episode, unspecified; F17.200 Nicotine dependence, unspecified, uncomplicated; I25.2 Old myocardial infarction; K29.70 Gastritis, unspecified, without bleeding; Z86.718 Personal history of other venous thrombosis and embolism; Z86.711 Personal history of pulmonary embolism
CPT/HCPCS: 71020; 71275; 74177; 76705; 80048; 80053; 81003; 82248; 83690; 83735; 84484; 85025; 85027; 85610; 85730; 93005; 99281; 99285; C9113; G0480; J2270; J2405; J7030

== ENCOUNTER 2017-07-16 14:35 | Emergency (ER) | payer OTHER ==
[~2017-07-16] VITALS: Ht 180.3 cm; Wt 72.2 kg
[~2017-07-16 14:35] MED LIST changes: +DIFLUCAN200 MG PO
[2017-07-16 15:13] LABS: EOSINOPHIL (%) 1.4 % (0-5); HEMATOCRIT 34.1 % (38.0-50.0); IMMATURE GRANULOCYTE (%) 0.3 % (0.0-0.7); INSTRUMENT ABS NEUTROPHIL CT 1.3 K/uL; LYMPHOCYTE COUNT 1.2 K/uL (1.0-2.8); MCH 29.3 PG (29.0-34.0); MCHC 33.7 G/DL (30.0-36.0); MCV 86.8 FL (86-99); MEAN PLAT.VOLUME 9.6 uM^3 (9.0-12.4); MONOCYTE (%) 9.4 % (3-12); MONOCYTE COUNT 0.3 K/uL (0-0.8); NEUTROPHIL (%) 45.7 % (45-76); NEUTROPHIL COUNT 1.3 K/uL (1.8-6.4); PLATELET COUNT 213 K/uL (156-360); RBC DIS.WIDTH-CV 16.8 % (11.8-14.6); RBC DIS.WIDTH-SD 53.4 % (39-53); RED BLOOD COUNT 3.93 M/uL (4.00-5.50); WHITE BLOOD COUNT 2.9 K/uL (4.1-10.2)
[2017-07-16 15:25] LABS: POTASSIUM 3.5 mEq/L (3.7-5.4)
[2017-07-16 15:27] LABS: GLUCOSE 81 mg/dL (70-99)
[2017-07-16 15:28] LABS: ANION GAP 14 MEQ/L (2-14)
[2017-07-16 15:30] LABS: SERUM ETHYL ALCOHOL 379 mg/dL
[2017-07-16 15:31] LABS: GFR ESTIMATE (CALCULATED) > 59 mL/min/
[2017-07-16 15:32] LABS: UREA NITROGEN (BUN) 7 mg/dL (9-23)
[2017-07-16 15:36] LABS: CHLORIDE 109 mEq/L (99-109); SODIUM 149 mEq/L (136-147)
[2017-07-16 15:49] LABS: ADD MEDTOX COMMENT Y; AMPHETAMINE NEGATIVE (500 ng/mL); BARBITURATES NEGATIVE (200 ng/mL); BENZODIAZEPINES PRESUMPTIVE POSITIVE (150 ng/mL); COCAINE NEGATIVE (150 ng/mL); INTERNAL CONTROLS VALID? YES; METHADONE NEGATIVE (200 ng/mL); METHAMPHETAMINE NEGATIVE (500 ng/mL); OPIATES (MORPHINE) NEGATIVE (100 ng/mL); OXYCODONE NEGATIVE (100 ng/mL); PHENCYCLIDINE NEGATIVE (25 ng/mL); PROPOXYPHENE NEGATIVE (300 ng/mL); THC CANNABINOIDS NEGATIVE (50 ng/mL); TRICYCLIC ANTIDEPRESSANTS NEGATIVE (300 ng/mL)
[2017-07-16 16:15] LABS: BENZODIAZEPINES, URINE SCREEN POSITIVE (200 ng/mL)
[2017-07-17 03:21] VITALS: BP 116/77
== END 2017-07-17 03:32 | disposition home or self-care (01) ==
LOC: EME 14:35
PROVIDERS: Emergency Medicine
DX: F10.129 Alcohol abuse with intoxication, unspecified (principal); F33.2 Major depressive disorder, recurrent severe without psychotic features; R45.851 Suicidal ideations; Z95.5 Presence of coronary angioplasty implant and graft; Z79.01 Long term (current) use of anticoagulants; Z85.820 Personal history of malignant melanoma of skin; F17.200 Nicotine dependence, unspecified, uncomplicated; Y90.8 Blood alcohol level of 240 mg/100 ml or more
CPT/HCPCS: 70450; 80048; 84999; 85025; 90839; 99281; 99285; G0480; J3411; J3475; J7030

== ENCOUNTER 2017-07-17 15:16 | Inpatient (IN) | payer OTHER ==
[~2017-07-17] VITALS: Ht 180.3 cm; Wt 73.4 kg
[2017-07-17 16:01] LABS: HEMATOCRIT 34.8 % (38.0-50.0); MCHC 33.6 G/DL (30.0-36.0); MCV 86.4 FL (86-99); MEAN PLAT.VOLUME 9.9 uM^3 (9.0-12.4); PLATELET COUNT 204 K/uL (156-360); RBC DIS.WIDTH-CV 16.2 % (11.8-14.6); RBC DIS.WIDTH-SD 51.8 % (39-53); RED BLOOD COUNT 4.03 M/uL (4.00-5.50); WHITE BLOOD COUNT 5.6 K/uL (4.1-10.2)
[2017-07-17 16:12] LABS: ADD MIUA? NO; BILIRUBIN NEGATIVE; BLOOD NEGATIVE; COLOR COLORLESS ((YELLOW)); GLUCOSE (STRIP) NEGATIVE; KETONES NEGATIVE; LEUKOCYTES NEGATIVE; NITRITE NEGATIVE; PROTEIN (STRIP) NEGATIVE; SPECIFIC GRAVITY 1.003 (1.000-1.030); UROBILINOGEN 0.2 MG/DL (0.2-1.0)
[2017-07-17 16:12] LABS: CHLORIDE 105 mEq/L (99-109); POTASSIUM 2.9 mEq/L (3.7-5.4); SODIUM 141 mEq/L (136-147)
[2017-07-17 16:14] LABS: GLUCOSE 73 mg/dL (70-99)
[2017-07-17 16:15] LABS: ANION GAP 16 MEQ/L (2-14)
[2017-07-17 16:17] LABS: ALKALINE PHOSPHATASE 74 IU/L (3-129); SERUM ETHYL ALCOHOL 212 mg/dL
[2017-07-17 16:18] LABS: GFR ESTIMATE (CALCULATED) > 59 mL/min/
[2017-07-17 16:19] LABS: UREA NITROGEN (BUN) 7 mg/dL (9-23)
[2017-07-17 16:22] LABS: ADD MEDTOX COMMENT Y; AMPHETAMINE NEGATIVE (500 ng/mL); BARBITURATES NEGATIVE (200 ng/mL); BENZODIAZEPINES PRESUMPTIVE POSITIVE (150 ng/mL); COCAINE NEGATIVE (150 ng/mL); INTERNAL CONTROLS VALID? YES; METHADONE NEGATIVE (200 ng/mL); METHAMPHETAMINE NEGATIVE (500 ng/mL); OPIATES (MORPHINE) NEGATIVE (100 ng/mL); OXYCODONE NEGATIVE (100 ng/mL); PHENCYCLIDINE NEGATIVE (25 ng/mL); PROPOXYPHENE NEGATIVE (300 ng/mL); THC CANNABINOIDS NEGATIVE (50 ng/mL); TRICYCLIC ANTIDEPRESSANTS NEGATIVE (300 ng/mL)
[2017-07-17 16:50] LABS: BENZODIAZEPINES, URINE SCREEN POSITIVE (200 ng/mL)
[2017-07-18 03:01] VITALS: BP 151/88
[2017-07-18 08:10] VITALS: BP 123/90
[2017-07-18 16:00] VITALS: BP 149/88
[2017-07-19 08:01] VITALS: BP 135/86
[2017-07-19 15:44] VITALS: BP 138/92
[2017-07-19 23:17] VITALS: BP 123/74
[2017-07-20 07:43] VITALS: BP 135/68
[2017-07-20 16:09] VITALS: BP 140/64
[2017-07-21 08:09] VITALS: BP 120/75
[2017-07-21 15:32] VITALS: BP 123/74
[2017-07-22 07:37] VITALS: BP 116/76
[2017-07-22] MEDS ORDERED: EFFEXOR XR37.5 MG PO (08:51)
[2017-07-22 15:21] VITALS: BP 105/70
[2017-07-23 07:30] VITALS: BP 120/67
[2017-07-23 09:42] LABS: PROTHROMBIN TIME 10.6 SEC (10.2-12.9)
[2017-07-23 15:40] VITALS: BP 118/62
[2017-07-24 08:06] VITALS: BP 137/73
[2017-07-24 17:56] VITALS: BP 125/88
[2017-07-25 07:35] VITALS: BP 128/81
== END 2017-07-25 12:49 | disposition home or self-care (01) | DRG 885 ==
LOC: EME 15:16 → EDOF 22:34 → 1WEST 22:34 → ENRESERV 07-18 02:58 → 1WEST 07-18 02:59
PROVIDERS: Emergency Medicine; Nurse Practitioner Family
DX: F33.1 Major depressive disorder, recurrent, moderate (principal); F10.229 Alcohol dependence with intoxication, unspecified; R45.851 Suicidal ideations; F60.7 Dependent personality disorder; K21.9 Gastro-esophageal reflux disease without esophagitis; F17.200 Nicotine dependence, unspecified, uncomplicated; Z76.5 Malingerer [conscious simulation]; I25.2 Old myocardial infarction; Z95.5 Presence of coronary angioplasty implant and graft; Z95.828 Presence of other vascular implants and grafts; Z86.711 Personal history of pulmonary embolism; Z86.718 Personal history of other venous thrombosis and embolism; Z85.820 Personal history of malignant melanoma of skin; Z81.8 Family history of other mental and behavioral disorders
CPT/HCPCS: 80053; 81003; 84999; 85027; 85610; 90839; 97150 GO; 97165 GO; 99281; 99285; G0480; Q0177

== ENCOUNTER 2017-09-26 17:42 | Observation (INO) | payer OTHER ==
[~2017-09-26] VITALS: Ht 180.3 cm; Wt 71.5 kg
[2017-09-26 19:25] LABS: HEMATOCRIT 42.5 % (38.0-50.0); HEMOGLOBIN 14.8 G/DL (12.5-16.6); MCH 30.1 PG (29.0-34.0); MCHC 34.8 G/DL (30.0-36.0); MCV 86.6 FL (86-99); PLATELET COUNT 142 K/uL (156-360); RBC DIS.WIDTH-CV 16.2 % (11.8-14.6); RBC DIS.WIDTH-SD 51.4 % (39-53); RED BLOOD COUNT 4.91 M/uL (4.00-5.50); WHITE BLOOD COUNT 6.9 K/uL (4.1-10.2)
[2017-09-26 19:37] LABS: CHLORIDE 93 mEq/L (99-109); POTASSIUM 3.2 mEq/L (3.7-5.4); SODIUM 136 mEq/L (136-147)
[2017-09-26 19:38] LABS: GLUCOSE 141 mg/dL (70-99)
[2017-09-26 19:42] LABS: CREATININE 1.4 mg/dL (0.6-1.3); GFR ESTIMATE (CALCULATED) 57 mL/min/ (58.99-99999)
[2017-09-26 19:43] LABS: UREA NITROGEN (BUN) 11 mg/dL (9-23)
[2017-09-26 19:47] LABS: TROP-I INTERPRETATION NEGATIVE; TROPONIN-I < 0.01 ng/mL (0.0-0.30)
[2017-09-26 20:07] LABS: SERUM ETHYL ALCOHOL < 10 mg/dL
[2017-09-26] MEDS ORDERED: ADVIL200 MG PO (20:37)
[2017-09-26] MEDS ORDERED: RANITIDINE HCL150 MG PO (20:37)
[2017-09-26] MEDS ORDERED: PROTONIX40 MG PO (20:37)
[2017-09-26] MEDS ORDERED: DANTRIUM25 MG PO (20:37)
[2017-09-26 23:47] LABS: TROP-I INTERPRETATION NEGATIVE; TROPONIN-I < 0.01 ng/mL (0.0-0.30)
[2017-09-26 23:49] VITALS: BP 125/76
[2017-09-27 04:59] VITALS: BP 117/62
[2017-09-27 05:46] LABS: BASOPHIL (%) 0.7 % (0-1); EOSINOPHIL (%) 0.7 % (0-5); HEMATOCRIT 34.2 % (38.0-50.0); HEMOGLOBIN 11.8 G/DL (12.5-16.6); IMMATURE GRANULOCYTE (%) 0.5 % (0.0-0.7); LYMPHOCYTE (%) 22.2 % (15-42); MCH 30.5 PG (29.0-34.0); MCHC 34.5 G/DL (30.0-36.0); MCV 88.4 FL (86-99); MONOCYTE (%) 9.8 % (3-12); MONOCYTE COUNT 0.4 K/uL (0-0.8); NEUTROPHIL (%) 66.1 % (45-76); NEUTROPHIL COUNT 2.8 K/uL (1.8-6.4); PLATELET COUNT 118 K/uL (156-360); RBC DIS.WIDTH-CV 16.3 % (11.8-14.6); RED BLOOD COUNT 3.87 M/uL (4.00-5.50); WHITE BLOOD COUNT 4.3 K/uL (4.1-10.2)
[2017-09-27 06:10] LABS: ALBUMIN 4.2 G/DL (3.2-4.8); ALKALINE PHOSPHATASE 60 IU/L (3-129); ALT (GPT) 14 IU/L (3-49); AST (GOT) 26 IU/L (2-34); CHLORIDE 98 MEQ/L (99-109); DIRECT BILIRUBIN 0.5 mg/dL (0.0-0.3); GFR ESTIMATE (CALCULATED) > 59 mL/min/ (58.99-99999); MAGNESIUM 1.6 mg/dl (1.3-2.7); POTASSIUM 3.3 MEQ/L (3.7-5.4); SODIUM 134 MEQ/L (136-147); TOTAL BILIRUBIN 3.1 MG/DL (0.0-1.0); TOTAL PROTEIN 6.7 G/DL (6.4-8.3); UREA NITROGEN (BUN) 11 mg/dL (9-23)
[2017-09-27 06:12] LABS: GLUCOSE 84 mg/dL (70-99)
[2017-09-27 09:15] VITALS: BP 137/72
[2017-09-27 11:51] VITALS: BP 137/64
[2017-09-27 15:27] VITALS: BP 112/58
[2017-09-27 19:57] VITALS: BP 152/81
[2017-09-27 23:41] VITALS: BP 132/75
[2017-09-28 05:14] VITALS: BP 116/71
[2017-09-28 05:43] LABS: HEMATOCRIT 36.8 % (38.0-50.0); HEMOGLOBIN 12.3 G/DL (12.5-16.6); MCH 29.8 PG (29.0-34.0); MCHC 33.4 G/DL (30.0-36.0); MCV 89.1 FL (86-99); PLATELET COUNT 113 K/uL (156-360); RBC DIS.WIDTH-SD 52.3 % (39-53); RED BLOOD COUNT 4.13 M/uL (4.00-5.50); WHITE BLOOD COUNT 4.2 K/uL (4.1-10.2)
[2017-09-28 06:22] LABS: CHLORIDE 103 MEQ/L (99-109); GFR ESTIMATE (CALCULATED) > 59 mL/min/ (58.99-99999); POTASSIUM 3.4 MEQ/L (3.7-5.4); SODIUM 137 MEQ/L (136-147); UREA NITROGEN (BUN) 12 mg/dL (9-23)
[2017-09-28 06:23] LABS: GLUCOSE 120 mg/dL (70-99)
[2017-09-28 09:10] VITALS: BP 126/75
[2017-09-28 16:51] LABS: C DIFF TOXIN NEGATIVE (NEGATIVE)
[2017-09-28 19:00] VITALS: BP 112/61
[2017-09-29 00:21] VITALS: BP 121/72
[2017-09-29 03:18] VITALS: BP 101/54
[2017-09-29 05:29] LABS: HEMATOCRIT 35.7 % (38.0-50.0); HEMOGLOBIN 12.1 G/DL (12.5-16.6); MCH 30.9 PG (29.0-34.0); MCHC 33.9 G/DL (30.0-36.0); MCV 91.3 FL (86-99); PLATELET COUNT 114 K/uL (156-360); RBC DIS.WIDTH-CV 16.4 % (11.8-14.6); RBC DIS.WIDTH-SD 55.2 % (39-53); RED BLOOD COUNT 3.91 M/uL (4.00-5.50); WHITE BLOOD COUNT 3.8 K/uL (4.1-10.2)
[2017-09-29 05:52] LABS: CHLORIDE 108 MEQ/L (99-109); CREATININE 0.9 MG/DL (0.6-1.3); GFR ESTIMATE (CALCULATED) > 59 mL/min/ (58.99-99999); GLUCOSE 106 mg/dL (70-99); POTASSIUM 3.9 MEQ/L (3.7-5.4); SODIUM 138 MEQ/L (136-147); UREA NITROGEN (BUN) 15 mg/dL (9-23)
[2017-09-29 07:30] VITALS: BP 135/66
[2017-09-29] MEDS ORDERED: NICOTINE PATCH1 EACH TD (09:00)
[2017-09-29] MEDS ORDERED: SUMATRIPTAN SU100 MG PO (09:00)
[2017-09-29] MEDS ORDERED: FOLIC ACID1 MG PO (09:00)
[2017-09-29] MEDS ORDERED: Thiamine,Vitamin B1 PO (09:00)
[2017-09-29] MEDS ORDERED: ELIQUIS5 MG PO (09:00)
[2017-09-29] MEDS ORDERED: LOPERAMIDE2 MG PO (09:00)
[2017-09-29] MEDS ORDERED: TOPIRAMATE100 MG PO (09:00)
== END 2017-09-29 11:00 | disposition home or self-care (01) ==
LOC: EME 17:42 → EDOF 22:31 → 5WEST 22:31 → ENRESERV 22:36 → 5WEST 23:33 → ENPENDDIS 09-29 09:15 → 5WEST 09-29 11:00
PROVIDERS: Hospitalist; Physician Assistant
DX: R55 Syncope and collapse (principal); R56.9 Unspecified convulsions; E87.6 Hypokalemia; Z86.711 Personal history of pulmonary embolism; F41.8 Other specified anxiety disorders; D69.3 Immune thrombocytopenic purpura; D69.6 Thrombocytopenia, unspecified; N28.9 Disorder of kidney and ureter, unspecified; F17.200 Nicotine dependence, unspecified, uncomplicated; G43.909 Migraine, unspecified, not intractable, without status migrainosus; R11.2 Nausea with vomiting, unspecified; R19.7 Diarrhea, unspecified; Z86.718 Personal history of other venous thrombosis and embolism; Z79.01 Long term (current) use of anticoagulants; K21.0 Gastro-esophageal reflux disease with esophagitis; R07.9 Chest pain, unspecified; F10.239 Alcohol dependence with withdrawal, unspecified; I25.2 Old myocardial infarction; Z95.5 Presence of coronary angioplasty implant and graft; Z85.820 Personal history of malignant melanoma of skin; Z86.19 Personal history of other infectious and parasitic diseases; Z81.8 Family history of other mental and behavioral disorders; Z88.5 Allergy status to narcotic agent
CPT/HCPCS: 70551; 71020; 71275; 80048; 80076; 80306 90; 83735; 84484; 85025; 85027; 87493; 93005; 93306; 93970; 95819; 99281; 99285; G0378; G0480; J1885; J2405; J7030

== ENCOUNTER 2017-12-03 08:56 | Inpatient (IN) | payer OTHER ==
[~2017-12-03] VITALS: Ht 177.8 cm; Wt 70.6 kg
[~2017-12-03 08:56] MED LIST changes: +DANTRIUM25 MG PO; +LOPERAMIDE2 MG PO; +NICOTINE PATCH1 EACH TD; +RANITIDINE HCL150 MG PO; +SUMATRIPTAN SU100 MG PO; +TOPIRAMATE100 MG PO
[2017-12-03 09:29] LABS: BASOPHIL (%) 0.6 % (0-1); EOSINOPHIL (%) 0 % (0-5); HEMATOCRIT 37.3 % (38.0-50.0); HEMOGLOBIN 13.4 G/DL (12.5-16.6); IMMATURE GRANULOCYTE (%) 0.3 % (0.0-0.7); LYMPHOCYTE (%) 10.3 % (15-42); LYMPHOCYTE COUNT 0.7 K/uL (1.0-2.8); MCHC 35.9 G/DL (30.0-36.0); MONOCYTE (%) 5.2 % (3-12); MONOCYTE COUNT 0.3 K/uL (0-0.8); NEUTROPHIL (%) 83.6 % (45-76); NEUTROPHIL COUNT 5.3 K/uL (1.8-6.4); PLATELET COUNT 150 K/uL (156-360); RBC DIS.WIDTH-CV 15.1 % (11.8-14.6); RBC DIS.WIDTH-SD 49.6 % (39-53); RED BLOOD COUNT 4.19 M/uL (4.00-5.50); WHITE BLOOD COUNT 6.4 K/uL (4.1-10.2)
[2017-12-03 09:37] LABS: CHLORIDE 96 mEq/L (99-109); POTASSIUM 3.4 mEq/L (3.7-5.4); SODIUM 140 mEq/L (136-147)
[2017-12-03 09:39] LABS: GLUCOSE 164 mg/dL (70-99)
[2017-12-03 09:43] LABS: CREATININE 0.9 mg/dL (0.6-1.3); GFR ESTIMATE (CALCULATED) > 59 mL/min/ (58.99-99999)
[2017-12-03 09:44] LABS: UREA NITROGEN (BUN) 6 mg/dL (9-23)
[2017-12-03 12:20] LABS: APPEARANCE SL.HAZY ((CLEAR)); BILIRUBIN NEGATIVE; BLOOD NEGATIVE; COLOR YELLOW ((YELLOW)); GLUCOSE (STRIP) NEGATIVE; KETONES NEGATIVE; LEUKOCYTES NEGATIVE; NITRITE NEGATIVE; PROTEIN (STRIP) 30; SPECIFIC GRAVITY 1.009 (1.000-1.030); UROBILINOGEN 0.2 MG/DL (0.2-1.0)
[2017-12-03 12:36] LABS: BACTERIA NONE SEEN /HPF; EPITHELIAL CELLS NONE SEEN /HPF; HYALINE CASTS 0-5 /LPF; MUCUS NONE SEEN /LPF; RED BLOOD CELLS 0-5 /HPF (0-5); WHITE BLOOD CELLS NONE SEEN /HPF (0-5)
[2017-12-03 12:38] LABS: AMPHETAMINE NEGATIVE (500 ng/mL); BARBITURATES NEGATIVE (200 ng/mL); BENZODIAZEPINES NEGATIVE (150 ng/mL); BUPRENORPHINE NEGATIVE (10 ng/mL); COCAINE NEGATIVE (150 ng/mL); METHADONE NEGATIVE (200 ng/mL); METHAMPHETAMINE NEGATIVE (500 ng/mL); OPIATES (MORPHINE) PRESUMPTIVE POSITIVE (100 ng/mL); OXYCODONE NEGATIVE (100 ng/mL); PHENCYCLIDINE NEGATIVE (25 ng/mL); PROPOXYPHENE NEGATIVE (300 ng/mL); THC CANNABINOIDS NEGATIVE (50 ng/mL); TRICYCLIC ANTIDEPRESSANTS NEGATIVE (300 ng/mL)
[2017-12-03] MEDS ORDERED: TYLENOL REGULA325 MG PO (13:28)
[2017-12-03 16:01] VITALS: BP 122/77
[2017-12-03 19:19] VITALS: BP 112/63
[2017-12-03 23:58] VITALS: BP 117/72
[2017-12-04 01:31] LABS: INTER. NORMALIZED RATIO 1.4
[2017-12-04 01:34] LABS: PTT 35.9 SEC (25-37)
[2017-12-04 03:47] VITALS: BP 111/75
[2017-12-04 07:05] VITALS: BP 111/69
[2017-12-04 08:26] LABS: HEMATOCRIT 30.3 % (38.0-50.0); MCH 31.9 PG (29.0-34.0); PLATELET COUNT 109 K/uL (156-360); RBC DIS.WIDTH-CV 15.6 % (11.8-14.6); RBC DIS.WIDTH-SD 53.9 % (39-53)
[2017-12-04 08:27] LABS: HEMOGLOBIN 10.3 G/DL (12.5-16.6); MCV 93.8 FL (86-99); RED BLOOD COUNT 3.23 M/uL (4.00-5.50)
[2017-12-04 09:50] LABS: ALBUMIN 3.6 G/DL (3.2-4.8); ALKALINE PHOSPHATASE 68 IU/L (3-129); ALT (GPT) 25 IU/L (3-49); AST (GOT) 34 IU/L (2-34); CHLORIDE 101 MEQ/L (99-109); GFR ESTIMATE (CALCULATED) > 59 mL/min/ (58.99-99999); POTASSIUM 3.2 MEQ/L (3.7-5.4); SODIUM 135 MEQ/L (136-147); TOTAL BILIRUBIN 1.9 MG/DL (0.0-1.0); TOTAL PROTEIN 5.9 G/DL (6.4-8.3); UREA NITROGEN (BUN) 7 mg/dL (9-23)
[2017-12-04 09:51] LABS: GLUCOSE 98 mg/dL (70-99)
[2017-12-04 11:01] VITALS: BP 123/64
[2017-12-04 15:01] VITALS: BP 117/62
[2017-12-04 19:53] VITALS: BP 134/84
[2017-12-04 23:53] VITALS: BP 120/79
[2017-12-05 03:34] VITALS: BP 114/73
[2017-12-05 06:45] LABS: BASOPHIL (%) 0 % (0-1); EOSINOPHIL (%) 0 % (0-5); HEMATOCRIT 29.3 % (38.0-50.0); HEMOGLOBIN 10.4 G/DL (12.5-16.6); IMMATURE GRANULOCYTE (%) 0.6 % (0.0-0.7); LYMPHOCYTE (%) 12.3 % (15-42); LYMPHOCYTE COUNT 0.4 K/uL (1.0-2.8); MCHC 35.5 G/DL (30.0-36.0); MONOCYTE (%) 7.7 % (3-12); MONOCYTE COUNT 0.2 K/uL (0-0.8); NEUTROPHIL (%) 79.4 % (45-76); NEUTROPHIL COUNT 2.5 K/uL (1.8-6.4); PLATELET COUNT 110 K/uL (156-360); RBC DIS.WIDTH-CV 15.2 % (11.8-14.6); RBC DIS.WIDTH-SD 51.5 % (39-53); RED BLOOD COUNT 3.15 M/uL (4.00-5.50); WHITE BLOOD COUNT 3.1 K/uL (4.1-10.2)
[2017-12-05 07:17] LABS: CHLORIDE 108 MEQ/L (99-109); CREATININE 0.9 MG/DL (0.6-1.3); GFR ESTIMATE (CALCULATED) > 59 mL/min/ (58.99-99999); GLUCOSE 112 mg/dL (70-99); MAGNESIUM 1.2 mg/dl (1.3-2.7); POTASSIUM 3.4 MEQ/L (3.7-5.4); SODIUM 137 MEQ/L (136-147); UREA NITROGEN (BUN) 8 mg/dL (9-23)
[2017-12-05 08:06] VITALS: BP 112/75
[2017-12-05 11:40] VITALS: BP 113/63
[2017-12-05 16:08] VITALS: BP 123/80
[2017-12-05 19:45] VITALS: BP 107/69
[2017-12-05 23:17] VITALS: BP 108/67
[2017-12-06 03:34] VITALS: BP 119/77
[2017-12-06 07:06] LABS: BASOPHIL (%) 0 % (0-1); EOSINOPHIL (%) 0 % (0-5); HEMATOCRIT 39.9 % (38.0-50.0); IMMATURE GRANULOCYTE (%) 0.2 % (0.0-0.7); LYMPHOCYTE (%) 9.5 % (15-42); LYMPHOCYTE COUNT 0.5 K/uL (1.0-2.8); MCH 32.6 PG (29.0-34.0); MCHC 34.6 G/DL (30.0-36.0); MCV 94.3 FL (86-99); MONOCYTE (%) 7.6 % (3-12); MONOCYTE COUNT 0.4 K/uL (0-0.8); NEUTROPHIL (%) 82.7 % (45-76); NEUTROPHIL COUNT 4.5 K/uL (1.8-6.4); PLATELET COUNT 99 K/uL (156-360); RBC DIS.WIDTH-CV 15.7 % (11.8-14.6); RBC DIS.WIDTH-SD 53.7 % (39-53); WHITE BLOOD COUNT 5.4 K/uL (4.1-10.2)
[2017-12-06 07:07] LABS: HEMOGLOBIN 13.8 G/DL (12.5-16.6); RED BLOOD COUNT 4.23 M/uL (4.00-5.50)
[2017-12-06 07:24] LABS: CHLORIDE 107 MEQ/L (99-109); CREATININE 0.9 MG/DL (0.6-1.3); GFR ESTIMATE (CALCULATED) > 59 mL/min/ (58.99-99999); GLUCOSE 93 mg/dL (70-99); POTASSIUM 3.7 MEQ/L (3.7-5.4); SODIUM 137 MEQ/L (136-147); UREA NITROGEN (BUN) 8 mg/dL (9-23)
[2017-12-06 07:51] VITALS: BP 110/65
[2017-12-06 11:43] VITALS: BP 117/80
[2017-12-06 15:43] VITALS: BP 135/85
[2017-12-06 19:42] VITALS: BP 123/85
[2017-12-07 06:19] LABS: HEMATOCRIT 35.1 % (38.0-50.0); MCH 32.1 PG (29.0-34.0); MCHC 33.3 G/DL (30.0-36.0); MCV 96.4 FL (86-99); RBC DIS.WIDTH-SD 56.4 % (39-53); RED BLOOD COUNT 3.64 M/uL (4.00-5.50); WHITE BLOOD COUNT 5.2 K/uL (4.1-10.2)
[2017-12-07 06:26] LABS: HEMOGLOBIN 11.7 G/DL (12.5-16.6); PLATELET COUNT 165 K/uL (156-360)
[2017-12-07 07:03] VITALS: BP 120/76
[2017-12-07 11:01] VITALS: BP 114/73
[2017-12-07 15:10] VITALS: BP 127/67
[2017-12-07 20:00] VITALS: BP 119/73
[2017-12-08] VITALS (7 sets, daily range): BP systolic 111–142; BP diastolic 67–94
[2017-12-08 07:29] LABS: CHLORIDE 112 MEQ/L (99-109); CREATININE 0.8 MG/DL (0.6-1.3); GFR ESTIMATE (CALCULATED) > 59 mL/min/ (58.99-99999); GLUCOSE 94 mg/dL (70-99); MAGNESIUM 1.9 mg/dl (1.3-2.7); POTASSIUM 3.5 MEQ/L (3.7-5.4); SODIUM 141 MEQ/L (136-147); UREA NITROGEN (BUN) 11 mg/dL (9-23)
[2017-12-09 03:44] VITALS: BP 125/88
[2017-12-09 06:45] LABS: HEMATOCRIT 34.7 % (38.0-50.0); HEMOGLOBIN 11.6 G/DL (12.5-16.6); MCH 32.7 PG (29.0-34.0); MCHC 33.4 G/DL (30.0-36.0); MCV 97.7 FL (86-99); PLATELET COUNT 188 K/uL (156-360); RBC DIS.WIDTH-CV 16.6 % (11.8-14.6); RBC DIS.WIDTH-SD 60.5 % (39-53); RED BLOOD COUNT 3.55 M/uL (4.00-5.50); WHITE BLOOD COUNT 6.1 K/uL (4.1-10.2)
[2017-12-09 07:17] LABS: CHLORIDE 107 MEQ/L (99-109); GFR ESTIMATE (CALCULATED) > 59 mL/min/ (58.99-99999); GLUCOSE 108 mg/dL (70-99); POTASSIUM 4.3 MEQ/L (3.7-5.4); SODIUM 141 MEQ/L (136-147); UREA NITROGEN (BUN) 12 mg/dL (9-23)
[2017-12-09 08:26] VITALS: BP 144/85
[2017-12-09] MEDS ORDERED: DILAUDID2 MG PO (14:24)
[2017-12-09 15:37] VITALS: BP 127/73
[2017-12-09 23:35] VITALS: BP 112/71
[2017-12-10 08:02] VITALS: BP 124/75
[2017-12-10 16:00] VITALS: BP 100/59
[2017-12-10 23:51] VITALS: BP 107/64
[2017-12-11] MEDS ORDERED: ELIQUIS5 MG PO ×2 (07:39→07:42)
[2017-12-11] MEDS ORDERED: TOPIRAMATE100 MG PO (07:43)
[2017-12-11] MEDS ORDERED: GABAPENTIN300 MG PO (07:43)
[2017-12-11 07:46] VITALS: BP 119/71
[2017-12-11] MEDS ORDERED: TORADOL10 MG PO (10:13)
[2017-12-11] MEDS ORDERED: REGLAN10 MG PO (10:13)
== END 2017-12-11 14:39 | disposition home or self-care (01) | DRG 897 ==
LOC: EME 08:56 → 5SOUTH 13:11 → EDOF 13:11 → ENRESERV 13:12 → 5SOUTH 15:35
PROVIDERS: Emergency Medicine; Hospitalist; Physician Assistant; Physician Assistant Medical
DX: F10.231 Alcohol dependence with withdrawal delirium (principal); G40.89 Other seizures; I82.421 Acute embolism and thrombosis of right iliac vein; E83.42 Hypomagnesemia; E87.6 Hypokalemia; F33.9 Major depressive disorder, recurrent, unspecified; G43.919 Migraine, unspecified, intractable, without status migrainosus; G89.29 Other chronic pain; F41.9 Anxiety disorder, unspecified; H53.8 Other visual disturbances; I25.2 Old myocardial infarction; K21.9 Gastro-esophageal reflux disease without esophagitis; Z91.14 Patient's other noncompliance with medication regimen; F17.210 Nicotine dependence, cigarettes, uncomplicated; Z95.5 Presence of coronary angioplasty implant and graft; Z79.01 Long term (current) use of anticoagulants; Z81.8 Family history of other mental and behavioral disorders; Z82.49 Family history of ischemic heart disease and other diseases of the circulatory system; Z86.711 Personal history of pulmonary embolism
CPT/HCPCS: 70450; 70551; 71045; 71046; 71275; 80048; 80053; 81003; 83735; 84999; 85025; 85027; 85610; 85652; 85730; 93971; 97530 GP; 99281; 99285; J0780; J1885; J2060; J2270; J2405; J2765; J2930; J3411; J3475; J3480; J7030; J7040; J7050; Q0169

== ENCOUNTER 2017-12-14 13:46 | Emergency (ER) | payer OTHER ==
[~2017-12-14] VITALS: Ht 177.8 cm; Wt 75.0 kg
[~2017-12-14 13:46] MED LIST changes: +DILAUDID2 MG PO; +GABAPENTIN300 MG PO; +REGLAN10 MG PO; +TORADOL10 MG PO
[2017-12-14 15:48] LABS: HEMATOCRIT 36.2 % (38.0-50.0); HEMOGLOBIN 11.9 G/DL (12.5-16.6); MCHC 32.9 G/DL (30.0-36.0); MCV 100.3 FL (86-99); RBC DIS.WIDTH-CV 16.5 % (11.8-14.6); RED BLOOD COUNT 3.61 M/uL (4.00-5.50); WHITE BLOOD COUNT 5.3 K/uL (4.1-10.2)
[2017-12-14 15:49] LABS: PLATELET COUNT 360 K/uL (156-360)
[2017-12-14 16:10] LABS: TROP-I INTERPRETATION NEGATIVE; TROPONIN-I < 0.01 ng/mL (0.0-0.30)
[2017-12-14 16:20] LABS: ALBUMIN 4.2 g/dL (3.2-4.8); CHLORIDE 113 mEq/L (99-109); POTASSIUM 4.2 mEq/L (3.7-5.4); SODIUM 144 mEq/L (136-147)
[2017-12-14 16:22] LABS: GLUCOSE 88 mg/dL (70-99); TOTAL PROTEIN 7.3 g/dL (6.4-8.3)
[2017-12-14 16:24] LABS: TOTAL BILIRUBIN 0.3 mg/dL (0.0-1.0)
[2017-12-14 16:26] LABS: ALKALINE PHOSPHATASE 61 IU/L (3-129); CREATININE 0.8 mg/dL (0.6-1.3); GFR ESTIMATE (CALCULATED) > 59 mL/min/ (58.99-99999)
[2017-12-14 16:27] LABS: UREA NITROGEN (BUN) 4 mg/dL (9-23)
[2017-12-14 16:28] LABS: AST (GOT) 27 IU/L (2-34)
[2017-12-14 16:29] LABS: ALT (GPT) 29 IU/L (3-49)
[2017-12-14 19:20] VITALS: BP 109/71
== END 2017-12-14 19:22 | disposition home or self-care (01) ==
LOC: EME 13:46
PROVIDERS: Emergency Medicine
DX: I82.491 Acute embolism and thrombosis of other specified deep vein of right lower extremity (principal); G43.919 Migraine, unspecified, intractable, without status migrainosus; K21.9 Gastro-esophageal reflux disease without esophagitis; F41.9 Anxiety disorder, unspecified; F32.9 Major depressive disorder, single episode, unspecified; I25.2 Old myocardial infarction; F17.200 Nicotine dependence, unspecified, uncomplicated; Z86.718 Personal history of other venous thrombosis and embolism; Z86.711 Personal history of pulmonary embolism; Z95.5 Presence of coronary angioplasty implant and graft; Z86.73 Personal history of transient ischemic attack (TIA), and cerebral infarction without residual deficits; Z85.820 Personal history of malignant melanoma of skin; Z88.5 Allergy status to narcotic agent; Z88.6 Allergy status to analgesic agent; Z88.8 Allergy status to other drugs, medicaments and biological substances
CPT/HCPCS: 71275; 80053; 81003; 84484; 85027; 99281; 99285; J1200; J2765; J7050

== ENCOUNTER 2017-12-28 04:16 | Inpatient (IN) | payer OTHER ==
[~2017-12-28] VITALS: Ht 180.3 cm; Wt 69.0 kg
[2017-12-28 06:13] LABS: HEMOGLOBIN 13.3 G/DL (12.5-16.6); MCH 32.7 PG (29.0-34.0); MCHC 35.9 G/DL (30.0-36.0); MCV 90.9 FL (86-99); RBC DIS.WIDTH-CV 15.7 % (11.8-14.6); RBC DIS.WIDTH-SD 52.5 % (39-53); RED BLOOD COUNT 4.07 M/uL (4.00-5.50); WHITE BLOOD COUNT 4.4 K/uL (4.1-10.2)
[2017-12-28 06:19] LABS: CHLORIDE 103 mEq/L (99-109); SODIUM 136 mEq/L (136-147)
[2017-12-28 06:22] LABS: GLUCOSE 79 mg/dL (70-99); TOTAL PROTEIN 7.4 g/dL (6.4-8.3)
[2017-12-28 06:24] LABS: TOTAL BILIRUBIN 3.1 mg/dL (0.0-1.0)
[2017-12-28 06:25] LABS: ALKALINE PHOSPHATASE 74 IU/L (3-129); GFR ESTIMATE (CALCULATED) > 59 mL/min/ (58.99-99999)
[2017-12-28 06:26] LABS: UREA NITROGEN (BUN) 7 mg/dL (9-23)
[2017-12-28 06:28] LABS: ALT (GPT) 543 IU/L (3-49)
[2017-12-28 06:32] LABS: TROP-I INTERPRETATION NEGATIVE; TROPONIN-I < 0.01 ng/mL (0.0-0.30)
[2017-12-28 06:38] LABS: AST (GOT) 1307 IU/L (2-34); POTASSIUM 2.4 mEq/L (3.7-5.4)
[2017-12-28 06:48] LABS: PLAT.SUFFICIENCY DECREASED
[2017-12-28] MEDS ORDERED: ZOFRAN ODT8 MG PO (06:57)
[2017-12-28 07:01] LABS: PLATELET COUNT 144 K/uL (156-360)
[2017-12-28] MEDS ORDERED: ELIQUIS5 MG PO (08:53)
[2017-12-28 08:58] LABS: CHLORIDE 107 mEq/L (99-109); POTASSIUM 2.5 mEq/L (3.7-5.4); SODIUM 138 mEq/L (136-147)
[2017-12-28 09:00] LABS: GLUCOSE 75 mg/dL (70-99)
[2017-12-28 09:03] LABS: GFR ESTIMATE (CALCULATED) > 59 mL/min/ (58.99-99999); SERUM ETHYL ALCOHOL < 10 mg/dL
[2017-12-28 09:04] LABS: UREA NITROGEN (BUN) 6 mg/dL (9-23)
[2017-12-28 09:42] LABS: MAGNESIUM 1.8 mg/dL (1.3-2.7)
[2017-12-28 11:08] LABS: HEPATITIS B SURFACE ANTIGEN Nonreactive
[2017-12-28 11:09] LABS: ANTI-HEPATITIS A VIRUS (IGM) Nonreactive; HEPATITIS C ANTIBODY Nonreactive
[2017-12-28 11:10] LABS: ANTI-HEPATITIS B CORE (IGM) Nonreactive
[2017-12-28 12:04] LABS: HIV-1/2 AB/AG COMBO Nonreactive
[2017-12-28 15:52] VITALS: BP 122/70
[2017-12-28 19:55] VITALS: BP 109/64
[2017-12-29 00:07] VITALS: BP 109/61
[2017-12-29 04:06] VITALS: BP 110/66
[2017-12-29 06:26] LABS: HEMATOCRIT 33.9 % (38.0-50.0); HEMOGLOBIN 11.6 G/DL (12.5-16.6); MCHC 34.2 G/DL (30.0-36.0); MCV 93.4 FL (86-99); RBC DIS.WIDTH-CV 15.8 % (11.8-14.6); RBC DIS.WIDTH-SD 54.6 % (39-53); RED BLOOD COUNT 3.63 M/uL (4.00-5.50); WHITE BLOOD COUNT 3.3 K/uL (4.1-10.2)
[2017-12-29 06:49] LABS: PLAT.SUFFICIENCY DECREASED
[2017-12-29 06:50] LABS: ALBUMIN 3.4 G/DL (3.2-4.8); ALKALINE PHOSPHATASE 60 IU/L (3-129); ALT (GPT) 808 IU/L (3-49); CHLORIDE 105 MEQ/L (99-109); GFR ESTIMATE (CALCULATED) > 59 mL/min/ (58.99-99999); GLUCOSE 83 mg/dL (70-99); SODIUM 135 MEQ/L (136-147); UREA NITROGEN (BUN) 5 mg/dL (9-23)
[2017-12-29 06:57] LABS: PLATELET COUNT 100 K/uL (156-360)
[2017-12-29 07:06] LABS: AST (GOT) 1690 IU/L (2-34); POTASSIUM 3.3 MEQ/L (3.7-5.4)
[2017-12-29 07:46] VITALS: BP 113/64
[2017-12-29 08:40] LABS: INTER. NORMALIZED RATIO 1.6
[2017-12-29 08:49] LABS: ACETAMINOPHEN (TYLENOL) < 10 MCG/ML (10-30)
[2017-12-29 09:32] LABS: CREATINE KINASE 1088 IU/L (1-294)
[2017-12-29 12:30] VITALS: BP 96/59
[2017-12-29 16:00] VITALS: BP 96/77
[2017-12-29 20:21] VITALS: BP 105/64
[2017-12-30 00:37] VITALS: BP 117/72
[2017-12-30 04:00] VITALS: BP 116/69
[2017-12-30 06:07] LABS: MCHC 33.3 G/DL (30.0-36.0); MCV 95.9 FL (86-99); PLATELET COUNT 110 K/uL (156-360); RBC DIS.WIDTH-CV 16.2 % (11.8-14.6); RBC DIS.WIDTH-SD 58.1 % (39-53); RED BLOOD COUNT 3.44 M/uL (4.00-5.50); WHITE BLOOD COUNT 3.2 K/uL (4.1-10.2)
[2017-12-30 07:04] LABS: BASOPHIL (%) 0.3 % (0-1); EOSINOPHIL (%) 0.6 % (0-5); IMMATURE GRANULOCYTE (%) 0.3 % (0.0-0.7); LYMPHOCYTE (%) 15.7 % (15-42); LYMPHOCYTE COUNT 0.5 K/uL (1.0-2.8); MONOCYTE (%) 12.5 % (3-12); MONOCYTE COUNT 0.4 K/uL (0-0.8); NEUTROPHIL (%) 70.6 % (45-76); NEUTROPHIL COUNT 2.3 K/uL (1.8-6.4)
[2017-12-30 07:22] LABS: ALBUMIN 3.7 G/DL (3.2-4.8); ALKALINE PHOSPHATASE 84 IU/L (3-129); ALT (GPT) 534 IU/L (3-49); CHLORIDE 112 MEQ/L (99-109); CREATININE 0.9 MG/DL (0.6-1.3); DIRECT BILIRUBIN 0.4 mg/dL (0.0-0.3); GFR ESTIMATE (CALCULATED) > 59 mL/min/ (58.99-99999); GLUCOSE 121 mg/dL (70-99); SODIUM 135 MEQ/L (136-147); TOTAL PROTEIN 6.4 G/DL (6.4-8.3); UREA NITROGEN (BUN) 5 mg/dL (9-23)
[2017-12-30 07:30] LABS: AST (GOT) 434 IU/L (2-34); TOTAL BILIRUBIN 1.2 MG/DL (0.0-1.0)
[2017-12-30 07:36] LABS: CREATINE KINASE 919 IU/L (1-294)
[2017-12-30 07:41] VITALS: BP 122/72
[2017-12-30 09:10] LABS: CARBON DIOXIDE (BICARBONATE) 16.1 MEQ/L (20-31)
[2017-12-30 12:00] VITALS: BP 108/69; BP 134/62
[2017-12-30 15:30] VITALS: BP 108/68
[2017-12-30 20:00] VITALS: BP 113/71
[2017-12-31] VITALS: BP 104/67
[2017-12-31 04:00] VITALS: BP 116/65
[2017-12-31 06:12] LABS: HEMATOCRIT 33.4 % (38.0-50.0); MCHC 32.9 G/DL (30.0-36.0); MCV 97.1 FL (86-99); PLATELET COUNT 117 K/uL (156-360); RBC DIS.WIDTH-CV 16.8 % (11.8-14.6); RBC DIS.WIDTH-SD 60.5 % (39-53); RED BLOOD COUNT 3.44 M/uL (4.00-5.50); WHITE BLOOD COUNT 3.2 K/uL (4.1-10.2)
[2017-12-31 06:37] LABS: ALBUMIN 3.5 G/DL (3.2-4.8); ALKALINE PHOSPHATASE 79 IU/L (3-129); ALT (GPT) 394 IU/L (3-49); AST (GOT) 212 IU/L (2-34); CHLORIDE 111 MEQ/L (99-109); CREATINE KINASE 784 IU/L (1-294); CREATININE 0.9 MG/DL (0.6-1.3); GFR ESTIMATE (CALCULATED) > 59 mL/min/ (58.99-99999); GLUCOSE 97 mg/dL (70-99); POTASSIUM 3.8 MEQ/L (3.7-5.4); SODIUM 140 MEQ/L (136-147); UREA NITROGEN (BUN) 5 mg/dL (9-23)
[2017-12-31 07:49] VITALS: BP 143/89
[2017-12-31 11:47] VITALS: BP 141/89
[2017-12-31 16:05] VITALS: BP 109/66
[2017-12-31 19:37] VITALS: BP 118/69
[2018-01-01 00:22] VITALS: BP 110/67
[2018-01-01 03:50] VITALS: BP 116/70
[2018-01-01 06:22] LABS: BASOPHIL (%) 0.3 % (0-1); EOSINOPHIL (%) 5.4 % (0-5); EOSINOPHIL COUNT 0.2 K/uL (0-0.3); HEMATOCRIT 33.7 % (38.0-50.0); HEMOGLOBIN 11.4 G/DL (12.5-16.6); IMMATURE GRANULOCYTE (%) 0.3 % (0.0-0.7); LYMPHOCYTE COUNT 0.9 K/uL (1.0-2.8); MCH 32.8 PG (29.0-34.0); MCHC 33.8 G/DL (30.0-36.0); MCV 96.8 FL (86-99); MONOCYTE (%) 20.4 % (3-12); MONOCYTE COUNT 0.6 K/uL (0-0.8); NEUTROPHIL (%) 44.6 % (45-76); NEUTROPHIL COUNT 1.4 K/uL (1.8-6.4); PLATELET COUNT 129 K/uL (156-360); RBC DIS.WIDTH-CV 16.8 % (11.8-14.6); RBC DIS.WIDTH-SD 59.7 % (39-53); RED BLOOD COUNT 3.48 M/uL (4.00-5.50); WHITE BLOOD COUNT 3.1 K/uL (4.1-10.2)
[2018-01-01 06:53] LABS: ALBUMIN 3.6 G/DL (3.2-4.8); ALKALINE PHOSPHATASE 78 IU/L (3-129); ALT (GPT) 266 IU/L (3-49); CHLORIDE 109 MEQ/L (99-109); CREATININE 0.9 MG/DL (0.6-1.3); GFR ESTIMATE (CALCULATED) > 59 mL/min/ (58.99-99999); GLUCOSE 94 mg/dL (70-99); POTASSIUM 3.6 MEQ/L (3.7-5.4); SODIUM 139 MEQ/L (136-147); TOTAL BILIRUBIN 0.8 MG/DL (0.0-1.0); UREA NITROGEN (BUN) 8 mg/dL (9-23)
[2018-01-01 06:59] LABS: AST (GOT) 89 IU/L (2-34)
[2018-01-01 07:57] VITALS: BP 130/74
[2018-01-01 12:11] VITALS: BP 110/67
[2018-01-01] MEDS ORDERED: FOLIC ACID1 MG PO (12:19)
[2018-01-01] MEDS ORDERED: Thiamine,Vitamin B1 PO (12:19)
[2018-01-01] MEDS ORDERED: LEVETIRACETAM500 MG PO (12:19)
[2018-01-01 16:23] VITALS: BP 112/72
== END 2018-01-01 17:21 | disposition home or self-care (01) | DRG 101 ==
LOC: EME → EDBD 04:16 → 5SOUTH 08:11 → EDOF 08:11 → ENRESERV 08:15 → 5SOUTH 15:32 → ENPENDDIS 01-01 12:29 → 5SOUTH 01-01 17:21
PROVIDERS: Emergency Medicine Emergency Medical Services; Internal Medicine; Physician Assistant
DX: G40.409 Other generalized epilepsy and epileptic syndromes, not intractable, without status epilepticus (principal); G43.909 Migraine, unspecified, not intractable, without status migrainosus; K70.10 Alcoholic hepatitis without ascites; E87.6 Hypokalemia; E87.2 Acidosis; M62.82 Rhabdomyolysis; R19.7 Diarrhea, unspecified; F10.20 Alcohol dependence, uncomplicated; K72.90 Hepatic failure, unspecified without coma; G44.029 Chronic cluster headache, not intractable; R74.0 Nonspecific elevation of levels of transaminase and lactic acid dehydrogenase [LDH]; R63.4 Abnormal weight loss; K29.70 Gastritis, unspecified, without bleeding; R44.1 Visual hallucinations; I25.2 Old myocardial infarction; K21.9 Gastro-esophageal reflux disease without esophagitis; F41.9 Anxiety disorder, unspecified; F32.9 Major depressive disorder, single episode, unspecified; R32 Unspecified urinary incontinence; F17.210 Nicotine dependence, cigarettes, uncomplicated; Z79.01 Long term (current) use of anticoagulants; Z81.1 Family history of alcohol abuse and dependence; Z85.820 Personal history of malignant melanoma of skin; Z86.711 Personal history of pulmonary embolism; Z86.718 Personal history of other venous thrombosis and embolism; Z86.73 Personal history of transient ischemic attack (TIA), and cerebral infarction without residual deficits; Z95.5 Presence of coronary angioplasty implant and graft
CPT/HCPCS: 70450; 76705; 80048; 80048 91; 80053; 80074; 80076; 82140; 82550; 82803; 83605; 83615; 83735; 84484; 85025; 85027; 85610; 85652; 85730; 86038; 86235; 87040; 87389; 87493; 93005; 95812; 99281; 99285; G0480; J0780; J1885; J2060; J2270; J2405; J3030; J3480; J7030; J7040

== ENCOUNTER 2018-01-04 17:08 | Emergency (ER) | payer OTHER ==
[~2018-01-04] VITALS: Ht 180.3 cm; Wt 72.5 kg
[~2018-01-04 17:08] MED LIST changes: +LEVETIRACETAM500 MG PO; +ZOFRAN ODT8 MG PO
[2018-01-04 17:48] LABS: HEMATOCRIT 34.8 % (38.0-50.0); HEMOGLOBIN 11.8 G/DL (12.5-16.6); MCH 33.2 PG (29.0-34.0); MCHC 33.9 G/DL (30.0-36.0); RBC DIS.WIDTH-CV 16.1 % (11.8-14.6); RBC DIS.WIDTH-SD 59.4 % (39-53); RED BLOOD COUNT 3.55 M/uL (4.00-5.50); WHITE BLOOD COUNT 4.5 K/uL (4.1-10.2)
[2018-01-04 18:04] LABS: CHLORIDE 109 mEq/L (99-109); POTASSIUM 3.4 mEq/L (3.7-5.4); SODIUM 144 mEq/L (136-147)
[2018-01-04 18:06] LABS: GLUCOSE 81 mg/dL (70-99)
[2018-01-04 18:10] LABS: CREATININE 0.9 mg/dL (0.6-1.3); GFR ESTIMATE (CALCULATED) > 59 mL/min/ (58.99-99999); UREA NITROGEN (BUN) 9 mg/dL (9-23)
[2018-01-04 18:40] LABS: SERUM ETHYL ALCOHOL 94 mg/dL
[2018-01-04 18:43] LABS: CREATINE KINASE 164 IU/L (1-294)
[2018-01-04 19:20] LABS: PLATELET COUNT 233 K/uL (156-360)
[2018-01-04 19:32] LABS: ALBUMIN 4.3 g/dL (3.2-4.8)
[2018-01-04 19:35] LABS: TOTAL PROTEIN 7.3 g/dL (6.4-8.3)
[2018-01-04 19:37] LABS: TOTAL BILIRUBIN 0.3 mg/dL (0.0-1.0)
[2018-01-04 19:38] LABS: ALKALINE PHOSPHATASE 102 IU/L (3-129)
[2018-01-04 19:41] LABS: ALT (GPT) 150 IU/L (3-49); AST (GOT) 38 IU/L (2-34); DIRECT BILIRUBIN 0.2 mg/dL (0.0-0.3)
[2018-01-04 22:54] LABS: APPEARANCE CLEAR ((CLEAR)); BILIRUBIN NEGATIVE; BLOOD NEGATIVE; COLOR YELLOW ((YELLOW)); GLUCOSE (STRIP) NEGATIVE; KETONES NEGATIVE; LEUKOCYTES NEGATIVE; NITRITE NEGATIVE; PROTEIN (STRIP) NEGATIVE; SPECIFIC GRAVITY 1.017 (1.000-1.030); UROBILINOGEN 0.2 MG/DL (0.2-1.0)
[2018-01-04 23:03] LABS: AMPHETAMINE NEGATIVE (500 ng/mL); BARBITURATES NEGATIVE (200 ng/mL); BENZODIAZEPINES PRESUMPTIVE POSITIVE (150 ng/mL); BUPRENORPHINE NEGATIVE (10 ng/mL); COCAINE NEGATIVE (150 ng/mL); METHADONE NEGATIVE (200 ng/mL); METHAMPHETAMINE NEGATIVE (500 ng/mL); OPIATES (MORPHINE) NEGATIVE (100 ng/mL); OXYCODONE NEGATIVE (100 ng/mL); PHENCYCLIDINE NEGATIVE (25 ng/mL); PROPOXYPHENE NEGATIVE (300 ng/mL); THC CANNABINOIDS NEGATIVE (50 ng/mL); TRICYCLIC ANTIDEPRESSANTS NEGATIVE (300 ng/mL)
[2018-01-05] MEDS ORDERED: VISTARIL50 MG PO (00:49)
[2018-01-05 01:27] VITALS: BP 120/78
[2018-01-05 03:55] LABS: BENZODIAZEPINES, URINE SCREEN POSITIVE (200 ng/mL)
== END 2018-01-05 01:29 | disposition home or self-care (01) ==
LOC: EME 17:08
PROVIDERS: Physician Assistant
DX: G47.00 Insomnia, unspecified (principal); G43.909 Migraine, unspecified, not intractable, without status migrainosus; R56.9 Unspecified convulsions; R00.0 Tachycardia, unspecified; K21.9 Gastro-esophageal reflux disease without esophagitis; I25.2 Old myocardial infarction; F32.9 Major depressive disorder, single episode, unspecified; F41.9 Anxiety disorder, unspecified; F17.200 Nicotine dependence, unspecified, uncomplicated; Z79.01 Long term (current) use of anticoagulants; Z95.5 Presence of coronary angioplasty implant and graft; Z95.810 Presence of automatic (implantable) cardiac defibrillator; Z86.69 Personal history of other diseases of the nervous system and sense organs; Z86.718 Personal history of other venous thrombosis and embolism; Z87.19 Personal history of other diseases of the digestive system; Z86.73 Personal history of transient ischemic attack (TIA), and cerebral infarction without residual deficits; Z85.820 Personal history of malignant melanoma of skin; Z88.6 Allergy status to analgesic agent; Z88.5 Allergy status to narcotic agent; Z88.8 Allergy status to other drugs, medicaments and biological substances
CPT/HCPCS: 71046; 80048; 80076; 81003; 82550; 84999; 85027; 87502; 93005; 99281; 99285; G0480; J1200; J1885